=== PATIENT | male | born 1940 | race Caucasian/White ===

== ENCOUNTER 2016-11-05 10:41 | Day surgery (SDC) | payer OTHER ==
[2016-11-05] VITALS (7 sets, daily range): BP systolic 113–176; BP diastolic 59–90; PULSE 75–86; RESP 16–20; TEMP 97.7–97.8; O2SAT 94–96
[~2016-11-05] VITALS: Ht 180.3 cm; Wt 75.0 kg
[~2016-11-05 10:41] MED LIST: ASPI81 PO; CITA20TA4 PO; HYDR-3580 PO; LISI-357 PO; LOVA40TA PO; METO25CR PO; NEUR300C PO; TAB-TAB PO; TAMS0.4C67 PO
[2016-11-05] MEDS ORDERED: FINA5TAB2 PO (11:11)
[2016-11-05] MEDS ORDERED: MULT1TAB84 PO (11:11)
[2016-11-05] MEDS ORDERED: DEXA2TAB PO (11:11)
[2016-11-05] MEDS ORDERED: LOVA40TA PO (11:11)
[2016-11-05] MEDS ORDERED: METO25TA6 PO (11:16)
[2016-11-05] MEDS ORDERED: LISI-519 PO (11:16)
[2016-11-05] MEDS ORDERED: ZOLP5TAB3 PO (11:17)
[2016-11-05] MEDS ORDERED: SERT-132 PO (11:18)
[2016-11-05] MEDS ORDERED: TAMS0.4C4 PO (11:19)
[2016-11-05] MEDS ORDERED: XARE20TA PO (11:19)
[2016-11-05] MEDS ORDERED: ACET-703 PO (11:20)
[2016-11-05] MEDS ORDERED: SODIUM CHLOR 0.9% 1000 ML IV SCH (11:30)
[2016-11-05] MEDS ORDERED: LIDOCAINE 1%/EPINEPHrine 1:100,000 SOLN 20 ML VIAL ONE (12:15)
[2016-11-05] MEDS ORDERED: MIDAZOLAM HCL 5 MG/5 ML VIAL ONE (12:28)
[2016-11-05] MEDS ORDERED: fentaNYL CITRATE 250 MCG/5 ML AMP ONE (12:28)
--- NOTE | 2016-11-05 14:15 | RADRPT ---
EXAM DATE/TIME: 11/05/2016 12:48 [facility] COMPARISON: No previous studies available for comparison. Correlation was performed to an outside PET CT exam. INDICATIONS : Soft tissue pelvic mass SEDATION TIME: 40 minutes BIOPSY SITE: Right pelvis MEDICATION(S): 1.) 5 mg midazolam (Versed) IV 2.) 250 mcg fentanyl (Sublimaze) IV DEVICE(S): 1.) 18 gauge Temno core biopsy needle 2.) 17 gauge introducer MEDICAL HISTORY : Carcinoma, squamous cell. Cardiovascular disease. SURGICAL HISTORY : CABG ENCOUNTER: Initial ACUITY: 1 day PAIN SCORE: 8/10 LOCATION: Right hip A total of six core specimen(s) were obtained and sent to the laboratory for pathologic evaluation. PROCEDURE: 1. CT guided soft tissue, right biopsy. 2. Conscious sedation with continuous EKG and oximetry monitoring. 3. EKG and oximetry remained stable throughout the procedure. Prior to the procedure informed consent was obtained. The patient's prior PET CT examination was revi ewed. Using automated exposure control and adjustment of the mA and/or kV according to patient size, radiat ion dose was kept as low as reasonably achievable to obtain optimal diagnostic quality images. The site was prepped in a sterile fashion. Full sterile technique was used, including cap, mask, hill rile gloves and gown and a large sterile sheet. Hand hygiene and 2% chlorhexidine and/or betadine/al cohol prep was utilized per protocol for cutaneous antisepsis. The skin and subcutaneous tissues wer e infiltrated with local anesthetic solution. With CT guidance the right pelvis mass was localized. The mass is located in the right iliac fossa re gion adjacent to the iliac is seen psoas muscles. PET imaging demonstrated the central portion to be necrotic so the periphery and particularly the inferior aspect was localized. Biopsy was performed us ing the prescribed needle as above. Adequate hemostasis was obtained with compression at the punctur e site. Follow-up CT scan reveals no hemorrhage or concerning abnormality. The patient tolerated the procedure well and there were no complications. The patient was returned to the Radiology Outpatient Unit in stable condition. CONCLUSION: Uncomplicated CT guided biopsy of the right pelvis mass. Emerson Cannon MD on November 05, 2016 at 14:12 Board Certified Radiologist. This report was verified electronically.
== END 2016-11-05 16:00 | disposition home or self-care (01) ==
LOC: MERGE 10:41 → HRAD 10:41 → HRIP 10:42 → HRAD 16:00
PROVIDERS: ATTEND Radiology Radiation Oncology
DX: C49.8 Malignant neoplasm of overlapping sites of connective and soft tissue (principal); R19.00 Intra-abdominal and pelvic swelling, mass and lump, unspecified site; Z85.828 Personal history of other malignant neoplasm of skin; I25.10 Atherosclerotic heart disease of native coronary artery without angina pectoris; Z95.1 Presence of aortocoronary bypass graft
CPT/HCPCS: 20206; 77012; 88305; 88313; 88341; 88342; 99152; 99153; J2250; J3010

== ENCOUNTER 2016-11-25 05:51 | Day surgery (SDC) | payer OTHER ==
[~2016-11-25] VITALS: Ht 180.3 cm; Wt 73.2 kg
[~2016-11-25 05:51] MED LIST changes: +ACET-703 PO; +DEXA2TAB PO; +FINA5TAB2 PO; +LISI-519 PO; +METO25TA6 PO; +MULT1TAB84 PO; +SERT-132 PO; +TAMS0.4C4 PO; +XARE20TA PO; +ZOLP5TAB3 PO
[2016-11-25] MEDS ORDERED: OXYB5TAB10 PO (06:38)
[2016-11-25] MEDS ORDERED: LISI-519 PO (06:39)
[2016-11-25] MEDS ORDERED: METO25TA6 PO (06:40)
[2016-11-25] MEDS ORDERED: XARE20TA PO (06:41)
[2016-11-25 06:42] VITALS: BP 128/74; PULSE 68; RESP 20; TEMP 98.2; O2SAT 97
[2016-11-25] MEDS ORDERED: MULT-65 PO (06:42)
[2016-11-25] MEDS ORDERED: LOVA40TA PO (06:43)
[2016-11-25] MEDS ORDERED: HYDR-3580 PO (06:44)
[2016-11-25] MEDS ORDERED: TAMS5CAP PO (06:45)
[2016-11-25] MEDS ORDERED: ceFAZolin 2 GM PREMIX 50 ML - implanted port removal IV SCH (07:00)
[2016-11-25] MEDS ORDERED: ceFAZolin 2 GM PREMIX 50 ML - implanted port/tunneled catheter insertion IV SCH (07:00)
[2016-11-25] MEDS: POVIDONE IODINE 5% (ANTISEPSIS KIT) 4 APPLICATIONS EACH NARE SCH ×2 (07:00→09:21)
[2016-11-25] MEDS: CHLORHEXIDINE GLUCONATE 2 % 1 PACK (2 CLOTHS) TOPICAL SCH ×2 (07:00→09:21)
[2016-11-25] MEDS ORDERED: VANCOMYCIN 1000 MG/NS 250 ML - implanted port/tunneled catheter IV SCH ×2 (07:00)
[2016-11-25] MEDS ORDERED: SODIUM CHLORIDE 0.9% 1000 ML IV SCH (07:00)
[2016-11-25 07:25] LABS: AUTOMATED NEUTROPHIL # 7.5 TH/MM3 (1.8-7.7); BASOPHIL % 0.4 % (0.0-2.0); EOSINOPHIL # 0.3 TH/MM3 (0-0.4); EOSINOPHIL % 3.1 % (0.0-4.0); HEMATOCRIT 38.7 % (39.0-51.0); HEMO FLAGS DIFF FINAL; LYMPH % 14.9 % (9.0-44.0); LYMPHOCYTE # 1.6 TH/MM3 (1.0-4.8); MEAN CELL VOLUME 89.2 FL (80.0-100.0); MEAN CORPUSCULAR HEMOGLOBIN 30.3 PG (27.0-34.0); MEAN CORPUSCULAR HGB CONC 33.9 % (32.0-36.0); MONO % 10.4 % (0.0-8.0); NEUT % 71.2 % (16.0-70.0); PLATELET COUNT 350 TH/MM3 (150-450); RED BLOOD COUNT 4.34 MIL/MM3 (4.50-5.90); WHITE BLOOD COUNT 10.6 TH/MM3 (4.0-11.0)
[2016-11-25 07:34] LABS: APTT (PATIENT) 29.4 SEC (24.3-30.1); INTERNATIONAL NORMALIZED RATIO 1.1 RATIO; PROTHROMBIN TIME - PATIENT 11.9 SEC (9.8-11.6)
[2016-11-25] MEDS ORDERED: fentaNYL CITRATE 250 MCG/5 ML AMP ONE (07:43)
[2016-11-25] MEDS ORDERED: MIDAZOLAM HCL 5 MG/5 ML VIAL ONE (07:43)
[2016-11-25] MEDS ORDERED: LIDOCAINE 1%/EPINEPHrine 1:100,000 SOLN 20 ML VIAL ONE (08:16)
[2016-11-25] MEDS ORDERED: SODIUM CHLORIDE 0.9% FLUSH 10 ML FLUSH IVF PRN (09:00)
[2016-11-25 09:10] VITALS: BP 129/57; PULSE 90; RESP 18; TEMP 98.1; O2SAT 92
--- NOTE | 2016-11-25 09:13 | PD.RAD ---
Post Procedure Progress Note Pre Procedure Diagnosis: (1) Lung cancer Post Procedure Diagnosis: (1) Lung cancer Procedure Date: November 25, 2016 Supervising Radiologist: Pantera Mueller Proceduralist/Assist: Latia Pierce, RT(R)(CV), Yasmeen Huffman RT(R) Anesthesia: Analgesia, Conscious Sedation Plan of Activity Patient to Unit: ROPU Patient Condition: Good See PACS Report for procedural detail/treatment Central Venous Access Device Procedure 1 Right Internal Jugular Infusaport Placement single lumen Yoruba: 8 Pantera Mueller MD November 25, 2016 09:13
[2016-11-25 09:45] VITALS: BP 118/76; PULSE 96; RESP 20; O2SAT 92
[2016-11-25 10:15] VITALS: BP 115/65; PULSE 82; RESP 18; O2SAT 92
[2016-11-25 10:40] VITALS: BP 100/65; PULSE 96; RESP 18; O2SAT 92
[2016-11-25 11:26] VITALS: BP 105/54; PULSE 99; RESP 18; O2SAT 94
--- NOTE | 2016-11-25 13:37 | RADRPT ---
EXAM DATE/TIME: 11/25/2016 07:59 [facility] COMPARISON: No previous studies available for comparison. INDICATIONS : Lung cancer. Patient for Radiation and chemo therapy. MEDICAL HISTORY : 1. CAD 2. MA 3. HTN 4. former smoker 5. Multble lesions in Lt hilum,liver SURGICAL HISTORY : 1. Coronary stent 2. Colonoscopy 2013 3. Back surgery 4. CABG ENCOUNTER: Initial ACUITY: 2 weeks PAIN SCORE: 10/10 LOCATION: back and right hip FLUORO TIME: 0.3 minutes IMAGE SERIES: 1 SEDATION TIME: 45 minutes ACCESS: Right internal jugular vein SEDATION: 1.) 5 mg midazolam (Versed) IV 2.) 250 mcg fentanyl (Sublimaze) IV Prophylactic antibiotics were administered with appropriate pre-procedure timing. Vancomycin within 2 hours of procedure, Ancef (or alternative) within 1 hour of procedure. DEVICE: 1. 8 Cymro single lumen Bard Power Port PROCEDURE : 1. Continuous pulse oximetry and EKG monitoring. 2. Intravenous conscious sedation. 3. Ultrasound guidance for venous access. 4. Fluoroscopic guided implantable central venous port placement. The patient was placed supine. The neck was prepped in sterile fashion. Full sterile technique was u sed, including cap, mask, sterile gloves and gown, and a large sterile sheet. Hand hygiene and 2% ch lorhexidine Betadine was utilized per protocol for cutaneous antisepsis with appropriate dry time for site. The skin and subcutaneous tissues were infiltrated with local anesthetic solution. Under direct ultrasound guidance, central venous access was accomplished in the targeted vessel. The ultrasound images depicting access guidance were stored and saved to PACS for permanent record. A s ubcutaneous pocket was created using blunt dissection. The port was introduced to the pocket. The c atheter tubing was fed through a subcutaneous tunnel to the venotomy site. The catheter tubing was c ut to a suitable length and then was introduced through a valved Peel-Away sheath and positioned with catheter tubing tip at the cavo-atrial junction level. The pocket incision was closed with subcutic ular Vicryl suture. Steri-Strips were applied. The port was flushed and locked with heparin solutio n per protocol. Sterile dressing was applied to the site. The patient tolerated the procedure well. Conscious sedation was performed with the prescribed dosages and duration as above in the presence of an independent trained radiology nurse to assist in the monitoring of the patient. EKG and oximetry remained stable throughout the procedure. The patient tolerated the procedure well and there were no complications. The patient was sent to post anesthesia recovery in stable condition. CONCLUSION: Uncomplicated ultrasound and fluoroscopic guided implanted central venous port catheter placement as described in detail above. An 8 Cymro Power port was placed. Pantera Mueller MD on November 25, 2016 at 13:35 Board Certified Radiologist. This report was verified electronically.
== END 2016-11-25 11:32 | disposition home or self-care (01) ==
LOC: HROP 05:51 → HRIP 05:51 → HROP 11:32
PROVIDERS: ATTEND Internal Medicine Hematology & Oncology
DX: C34.90 Malignant neoplasm of unspecified part of unspecified bronchus or lung (principal); I25.10 Atherosclerotic heart disease of native coronary artery without angina pectoris; I25.2 Old myocardial infarction; I10 Essential (primary) hypertension; Z87.891 Personal history of nicotine dependence; Z95.5 Presence of coronary angioplasty implant and graft; Z95.1 Presence of aortocoronary bypass graft; K21.9 Gastro-esophageal reflux disease without esophagitis
CPT/HCPCS: 36561; 76937; 77001; 85025; 85610; 85730; 99152; 99153; C1788; J0690; J1642; J2250; J3010; J3370; J7050

== ENCOUNTER 2016-12-14 15:35 | Inpatient (IN) | payer OTHER, MEDICARE ==
[2016-12-14] VITALS (7 sets, daily range): BP systolic 102–120; BP diastolic 57–75; PULSE 114–137; RESP 18–24; TEMP 97.4–98.3; O2SAT 94–98
[~2016-12-14] VITALS: Ht 180.3 cm; Wt 54.0 kg
[~2016-12-14 15:35] MED LIST changes: -ASPI81 PO; -CITA20TA4 PO; -LISI-357 PO; -METO25CR PO; +MULT-65 PO; -NEUR300C PO; +OXYB5TAB10 PO; -TAB-TAB PO; +TAMS5CAP PO
--- NOTE | 2016-12-14 16:56 | PD ---
HPI Chief Complaint: Pain: Acute or Chronic Time Seen by Provider: 16:41 Travel History International Travel<30 days: No Contact w/Intl Traveler<30days: No Traveled to known affect area: No History of Present Illness HPI 76-year-old male complains of severe pain all over the body. Patient has history of metastatic lung disease and squamous cell carcinoma of the skin. Patient is to taking morphine at home for pain. Patient states that the pain is more severe recently and the morphine is not relieving the pain. Patient was advised by his physician both the ED for admission for pain control. Patient denies any headache. Patient denies any shortness of breath. Patient denies fever chills. Patient denies abdominal pain. Patient denies any nausea vomiting diarrhea. Patient denies any focal weakness or numbness of extremity. Patient states that most of pain more severe around the left shoulder, right groin, right arm, right shoulder, the neck area. PFSH Past Medical History Hx Anticoagulant Therapy: Yes (XARELTO) Arthritis: Yes Asthma: No Autoimmune Disease: No Blood Disorders: No Anxiety: No Depression: Yes Heart Rhythm Problems: No Cancer: Yes Cardiac Catheterization: Yes Cardiovascular Problems: Yes (4X CABG) High Cholesterol: Yes Chemotherapy: Yes (RADITATION ONLY, SUPPOSE TO GO TO CHEMO 12/14/16) Chest Pain: Yes Congestive Heart Failure: No COPD: No Diabetes: No Diminished Hearing: No Endocrine: No Gastrointestinal Disorders: Yes (GERD) Genitourinary: Yes (BPH) Hepatitis: No Hiatal Hernia: No Hypertension: Yes Immune Disorder: No Musculoskeletal: Yes (back problems) Neurologic: No Psychiatric: No Reproductive: No Respiratory: Yes (LUNG CA WITH METS) Myocardial Infarction: Yes Radiation Therapy: No Renal Failure: Yes Sleep Apnea: No Thyroid Disease: No Past Surgical History Abdominal Surgery: No AICD: No Body Medical Devices: CARDIAC STENTS Cardiac Surgery: Yes (CABG X4) Coronary Artery Bypass Graft: Yes Coronary Stent: Yes Genitourinary Surgery: Yes (prostate staple) Joint Replacement: No Pacemaker: No Other Surgery: Yes (CABG, SQUAMOUS CELL CA ) Social History Alcohol Use: Yes (SOCIALLY ) Tobacco Use: No (QUIT 10 YEARS AGO) Substance Use: No Allergies-Medications (Allergen,Severity, Reaction): Coded Allergies: No Known Allergies (Verified , 12/14/16) Reported Meds & Prescriptions Reported Meds & Active Scripts Active Reported Flomax (Tamsulosin HCl) 0.4 Mg Cap 0.4 Mg PO HS Hydrocodone-Acetaminophen 7.5-325 mg Tab 1 Tab PO Q6H PRN Lovastatin 40 Mg Tab 40 Mg PO DAILY Multi-Vitamin Daily (Multiple Vitamin) 1 Tab Tab 1 Tab PO DAILY Xarelto (Rivaroxaban) 20 Mg Tab 20 Mg PO DAILY Metoprolol Succinate ER 24 HR (Metoprolol Succinate) 25 Mg Tab 25 Mg PO DAILY Lisinopril 5 Mg Tab 5 Mg PO DAILY Ditropan (Oxybutynin Chloride) 5 Mg Tab 5 Mg PO Q8HR Flomax (Tamsulosin HCl) 0.4 Mg Cap 0.4 Mg PO DAILY Review of Systems General / Constitutional: No: Fever Eyes: No: Visual changes HENT: No: Headaches Cardiovascular: No: Chest Pain or Discomfort Respiratory: No: Shortness of Breath Gastrointestinal: No: Abdominal Pain Genitourinary: No: Dysuria Musculoskeletal: Positive: Pain Skin: No Rash Neurologic: No: Weakness Psychiatric: No: Depression Endocrine: No: Polydipsia Hematologic/Lymphatic: No: Easy Bruising Physical Exam Narrative GENERAL: Well-nourished, well-developed patient. SKIN: Focused skin assessment warm/dry. HEAD: Normocephalic. EYES: No scleral icterus. No injection or drainage. NECK: Supple, trachea midline. No JVD or lymphadenopathy. CARDIOVASCULAR: Regular rate and rhythm without murmurs, gallops, or rubs. RESPIRATORY: Breath sounds equal bilaterally. No accessory muscle use. GASTROINTESTINAL: Abdomen soft, non-tender, nondistended. MUSCULOSKELETAL: No cyanosis, or edema. BACK: Nontender without obvious deformity. No CVA tenderness. Neurologic exam normal. Data Data Last Documented VS Vital Signs Date Time Temp Pulse Resp B/P Pulse Ox O2 Delivery O2 Flow Rate FiO2 12/14/16 15:37 97.4 137 24 120/57 96 Room Air [facility] Medical Decision Making Medical Screen Exam Complete: Yes Emergency Medical Condition: Yes Differential Diagnosis Differential diagnosis including intractable pain, electrolyte abnormality, dehydration, pathologic fracture. Narrative Course 76-year-old male with metastatic lung cancer and intractable pain. Normal saline solution 100 cc an hour. Dilaudid 1 mg IV. Zofran 4 mg IV. Sumit Cartwright MD Dec 14, 2016 16:56
[2016-12-14] MEDS ORDERED: SODIUM CHLOR 0.9% 1000 ML INJ 1,000 ML IV SCH (17:00)
[2016-12-14] MEDS ORDERED: ESCI10TA PO (17:14)
[2016-12-14] MEDS ORDERED: MSIR15 PO (17:14)
[2016-12-14] MEDS ORDERED: MORP1TAB25 PO (17:14)
[2016-12-14] MEDS ORDERED: GABA100C4 PO (17:14)
[2016-12-14] MEDS ORDERED: DILTIAZEM HCL 25 MG/5 ML VIAL IV ONE ×2 (17:30→19:15)
--- NOTE | 2016-12-14 17:45 | RADRPT ---
EXAM DATE/TIME: 12/14/2016 17:19 [facility] COMPARISON: CHEST SINGLE AP, December 21, 2013, 14:22. INDICATIONS : Short of breath. General bilateral pain. MEDICAL HISTORY : Carcinoma, lung. SURGICAL HISTORY : Open heart. ENCOUNTER: Initial ACUITY: 1 day PAIN SCORE: 6/10 LOCATION: Bilateral chest FINDINGS: [id number]-Ipie is in good position. Sternal wires from previous median sternotomy are noted. Minimal parenchymal changes are seen in the left base. Right lung is clear. CONCLUSION: Interval development of parenchymal changes on the left. These are nonspecific. Shailesh Fox MD FACR on December 14, 2016 at 17:42 Board Certified Radiologist. This report was verified electronically.
[2016-12-14 17:55] LABS: AUTOMATED NEUTROPHIL # 12.5 TH/MM3 (1.8-7.7); BASOPHIL % 0.3 % (0.0-2.0); EOSINOPHIL # 0.2 TH/MM3 (0-0.4); EOSINOPHIL % 1.4 % (0.0-4.0); HEMATOCRIT 36.2 % (39.0-51.0); HEMO FLAGS DIFF FINAL; MEAN CELL VOLUME 89.1 FL (80.0-100.0); MEAN CORPUSCULAR HEMOGLOBIN 28.6 PG (27.0-34.0); MEAN CORPUSCULAR HGB CONC 32.1 % (32.0-36.0); NEUT % 83.3 % (16.0-70.0); PLATELET COUNT 309 TH/MM3 (150-450); RED BLOOD COUNT 4.06 MIL/MM3 (4.50-5.90); RED CELL DISTRIBUTION WIDTH 13.2 % (11.6-17.2)
[2016-12-14 18:02] LABS: INTERNATIONAL NORMALIZED RATIO 1.4 RATIO; PROTHROMBIN TIME - PATIENT 15.3 SEC (9.8-11.6)
--- NOTE | 2016-12-14 18:20 | EKG ---
Date Performed: 12/14/2016 Time Performed: 17:11:06 PTAGE: 76 years EKG: ATRIAL FIBRILLATION WITH RAPID VENTRICULAR RESPONSE NONSPECIFIC ST & T-WAVE ABNORMALITY ABN ORMAL RHYTHM ECG COMPARED TO PRIOR ELECTROCARDIOGRAM, rapid atrial fibrillation has replaced Sinus r hythm and ST-T wave changes are present. PREVIOUS TRACING : 12/21/2013 14.02 DOCTOR: Abimael Zhao Interpretating Date/Time 12/14/2016 18:19:46
[2016-12-14 18:37] LABS: BLOOD, URINE NEG (NEG); COMMENT (UR) CULT NOT INDICATED; CULTURE IF INDICATED CULT NOT INDICATED; GLUCOSE,URINE NEG (NEG); KETONE, URINE 10 mg/dL (NEG); MUCUS URINE FEW /lpf (OCC); NITRITE,URINE NEG (NEG); PH, URINE 5.5 (5.0-8.5); URINE COLOR YELLOW (YELLW/STRAW)
[2016-12-14 18:43] LABS: ALT (GPT) 29 U/L (12-78)
[2016-12-14 18:46] LABS: ALKALINE PHOSPHATASE 221 U/L (45-117); ANION GAP 14 MEQ/L (5-15); AST (GOT) 25 U/L (15-37); BICARBONATE 21.9 MEQ/L (21.0-32.0); BLOOD UREA NITROGEN 16 MG/DL (7-18); CHLORIDE 98 MEQ/L (98-107); GLOMERULAR FILTRATION RATE 104 ML/MIN (>89); POTASSIUM 4.2 MEQ/L (3.5-5.1); SODIUM (NA) 134 MEQ/L (136-145); TOTAL BILIRUBIN ADULT 0.5 MG/DL (0.2-1.0)
[2016-12-14 18:56] LABS: CREATINE KINASE 42 U/L (39-308)
--- NOTE | 2016-12-14 19:07 | PD ---
Data Data Last Documented VS Vital Signs Date Time Temp Pulse Resp B/P Pulse Ox O2 Delivery O2 Flow Rate FiO2 12/14/16 18:56 114 18 112/73 94 Room Air 12/14/16 15:37 97.4 Orders Electrocardiogram (12/14/16 16:51) Complete Blood Count With Diff (12/14/16 16:51) Comprehensive Metabolic Panel (12/14/16 16:51) Creatine Kinase (Cpk) (12/14/16 16:51) Prothrombin Time / Inr (Pt) (12/14/16 16:51) Act Partial Throm Time (Ptt) (12/14/16 16:51) Urinalysis - C+S If Indicated (12/14/16 16:51) Chest, Single Ap (12/14/16 16:51) Iv Access Insert/Monitor (12/14/16 16:51) Ecg Monitoring (12/14/16 16:51) Oximetry (12/14/16 16:51) Sodium Chlor 0.9% 1000 Ml Inj (Ns 1000 M (12/14/16 17:00) Diltiazem Inj (Cardizem Inj) (12/14/16 17:30) Troponin I (12/14/16 17:30) Hydromorphone Pf Inj (Dilaudid Pf Inj) (12/14/16 19:15) Diltiazem Inj (Cardizem Inj) (12/14/16 19:15) Diltiazem Cd (Cardizem Cd) (12/14/16 19:15) Labs Laboratory Tests Test 12/14/16 12/14/16 17:00 18:10 White Blood Count 15.0 TH/MM3 Red Blood Count 4.06 MIL/MM3 Hemoglobin 11.6 GM/DL Hematocrit 36.2 % Mean Corpuscular Volume 89.1 FL Mean Corpuscular Hemoglobin 28.6 PG Mean Corpuscular Hemoglobin 32.1 % Concent Red Cell Distribution Width 13.2 % Platelet Count 309 TH/MM3 Mean Platelet Volume 8.2 FL Neutrophils (%) (Auto) 83.3 % Lymphocytes (%) (Auto) 7.0 % Monocytes (%) (Auto) 8.0 % Eosinophils (%) (Auto) 1.4 % Basophils (%) (Auto) 0.3 % Neutrophils # (Auto) 12.5 TH/MM3 Lymphocytes # (Auto) 1.0 TH/MM3 Monocytes # (Auto) 1.2 TH/MM3 Eosinophils # (Auto) 0.2 TH/MM3 Basophils # (Auto) 0.0 TH/MM3 CBC Comment DIFF FINAL Differential Comment Prothrombin Time 15.3 SEC Prothromb Time International 1.4 RATIO Ratio Activated Partial 32.0 SEC Thromboplast Time Sodium Level 134 MEQ/L Potassium Level 4.2 MEQ/L Chloride Level 98 MEQ/L Carbon Dioxide Level 21.9 MEQ/L Anion Gap 14 MEQ/L Blood Urea Nitrogen 16 MG/DL Creatinine 0.73 MG/DL Estimat Glomerular Filtration 104 ML/MIN Rate Random Glucose 115 MG/DL Calcium Level 10.4 MG/DL Total Bilirubin 0.5 MG/DL Aspartate Amino Transf 25 U/L (AST/SGOT) Alanine Aminotransferase 29 U/L (ALT/SGPT) Alkaline Phosphatase 221 U/L Total Creatine Kinase 42 U/L Troponin I LESS THAN 0.02 NG/ML Total Protein 7.2 GM/DL Albumin 2.1 GM/DL Urine Color YELLOW Urine Turbidity CLEAR Urine pH 5.5 Urine Specific [place] 1.022 Urine Protein 30 mg/dL Urine Glucose (UA) NEG mg/dL Urine Ketones 10 mg/dL Urine Occult Blood NEG Urine Nitrite NEG Urine Bilirubin NEG Urine Urobilinogen LESS THAN 2.0 MG/DL Urine Leukocyte Esterase NEG Urine RBC LESS THAN 1 /hpf Urine WBC 2 /hpf Urine Mucus FEW /lpf Microscopic Urinalysis Comment CULT NOT INDICATED MDM Supervised Visit with NARINDER: No Narrative Course The patient was initially evaluated by the previous provider and sent out to me at the beginning of my shift pending labs and disposition. See his note for further details. Briefly this is a 76-year-old male with history of metastatic lung cancer, squamous cell carcinoma of the scalp who was sent in by his primary care physician for admission for pain control. The patient is on morphine at home, however this is not controlling his pain. No fevers. Previous provider spoke with the patient's oncologist Dr. Motley who agrees with basic labs and admission for pain control, and he will evaluate the patient in consultation. Patient was also noted to be in A. fib with RVR upon arrival to the emergency department. He denies any known history of atrial fibrillation. He does have history of coronary artery disease and CABG and has been on Xarelto since his CABG. No history of DVT or PE. No chest pain or dyspnea. Initial vital signs show heart rate 137, blood pressure 120/57, pulse ox 96% on room air, oral temp 97.4F. Patient was given 10 mg of IV Cardizem with improvement in heart rate initially , however on reassessment his heart rate is back in the 120s. He will be given another dose of 10 mg of IV Cardizem. CBC shows WBC 15, hemoglobin 11.6, hematocrit 36.2, platelets 309, neutrophils 83%. CMP is remarkable for calcium 10.4 with alkaline phosphatase 221 and albumin 2.1 , otherwise unremarkable. Cardiac enzymes are negative. Chest x-ray: Interval development of peripheral changes on the left. These are nonspecific. Patient and the patient's family were made aware of all findings. He is resting comfortably. He is complaining of diffuse pain with pain mainly in his right thigh. He'll be admitted for further treatment and evaluation of metastatic disease with uncontrolled pain as well as new onset A. fib with RVR. Case discussed with hospitalist Dr. Ash who will admit the patient to her service. Diagnosis Primary Impression: Atrial fibrillation with RVR Additional Impression: Uncontrolled pain Admitting Information Admitting Physician Requests: Admit Guillermo Dudley MD Dec 14, 2016 19:07
[2016-12-14] MEDS ORDERED: HYDROmorphone HCL PF 1 MG/ML VIAL IV PUSH ONE (19:15)
[2016-12-14] MEDS ORDERED: DILTIAZEM-CD 120 MG CAP ER PO ONE (19:15)
[2016-12-14] MEDS ORDERED: SODIUM CHLORIDE 0.9% FLUSH 10 ML FLUSH IV FLUSH PRN (19:45)
[2016-12-14] MEDS ORDERED: ONDANSETRON HCL 4 MG/2 ML VIAL IVP PRN (19:45)
[2016-12-14] MEDS ORDERED: NALOXONE HCL 0.4 MG/ML AMP IV PRN (19:45)
[2016-12-14] MEDS: SODIUM CHLORIDE 0.9% FLUSH 10 ML FLUSH IV FLUSH SCH (21:00)
[2016-12-14] MEDS: HYDROmorphone HCL PF 1 MG/ML VIAL IV PUSH PRN ×2 (21:11→23:25)
[2016-12-14] MEDS: MORPHINE SULFATE 30 MG CONTROLLED RELEASE TAB PO SCH (21:46)
--- NOTE | 2016-12-14 21:51 | HHI.HP ---
HPI Service [facility] Primary Care Physician Lc Frazier MD Admission Diagnosis A. fib with RVR, uncontrolled pain Diagnoses: (1) Atrial fibrillation with RVR (2) Lung cancer Chief Complaint: Severe back pain Travel History International Travel<30 Days: No Contact w/Intl Traveler <30 Da: No Traveled to Known Affected Are: No History of Present Illness Written by Jolene Esparza, acting as scribe for Dr. Ash on 12/14/16 at 21:50. Mr. Garg is a 76 year-old male with a history of coronary artery disease status post CABG 4 and cardiac stent placement on Xarelto, lung cancer with metastasis receiving radiation treatments (oncologist is Dr. Motley), gastroesophageal reflux disease, BPH, arthritis, chronic back pain, and depression who presented to the emergency room on 12/14/2016 complaining of severe intractable pain. He was also noted to be in new-onset atrial fibrillation with rapid ventricular response. Patient reports severe back pain and severe right hip/pelvis pain worse - pain medication (morphine/Gabapentin) at home did not help - worsened with even light touch Family reports that he was falling frequently at home ? - Dr. Ramirez (referral and information aide for Dr. Brambila) sent him to the ER for evaluation. Patient reports that he fell down 2 or 3 days ago - fell on buttocks - legs were weak No paresthesias Difficulty urinating - one or two months (maybe more?) Last radiation treatment was Wednesday (no chemo yet - tomorrow is supposed to be 1st day of chemotherapy with Dr. Motley) pain in right: shoulder, bicep, hip; cancer left lung Denies history of diabetes mellitus, CHF, breathing problems, PE, DVT, CVA, seizures, or thyroid problems Reports maximum temperature at home of 99.5, no vomiting, diarrhea, black or bloody stool, or hematuria. . Review of Systems Except as stated in HPI: all other systems reviewed are Neg Past Family Social History Past Medical History Hypertension Squamous cell skin CA Coronary artery disease status post CABG x 4 (2013) with stent placement Lung cancer with metastasis receiving radiation Gastroesophageal reflux disease BPH Arthritis Chronic back pain Depression . Past Surgical History Squamous cell CA on head removed x 2 Laminectomy Penile implant CABG x 4 (2014) Cardiac catheterization with stent placement TURP Right IJ Carcpt-i-[id number] placement 11/25/2016 . Reported Medications Reported Meds & Active Scripts Active Reported Gabapentin 100 Mg Cap 100 Mg PO TID Morphine IR (Morphine Sulfate) 15 Mg Tab 15 Mg PO Q2HR PRN Morphine ER (Morphine Sulfate) 30 Mg Tab 30 Mg PO BID Escitalopram (Escitalopram Oxalate) 10 Mg Tab 10 Mg PO DAILY Lovastatin 40 Mg Tab 40 Mg PO DAILY Multi-Vitamin Daily (Multiple Vitamin) 1 Tab Tab 1 Tab PO DAILY Xarelto (Rivaroxaban) 20 Mg Tab 20 Mg PO DAILY Metoprolol Succinate ER 24 HR (Metoprolol Succinate) 25 Mg Tab 25 Mg PO DAILY Lisinopril 5 Mg Tab 5 Mg PO DAILY Ditropan (Oxybutynin Chloride) 5 Mg Tab 5 Mg PO Q8HR . Allergies: Coded Allergies: No Known Allergies (Verified , 12/14/16) Active Ordered Medications Current Medications Sodium Chloride (NS 1000 ml Inj) 1,000 ml @ 100 mls/hr Q10H IV Last administered on 12/14/16 17:37; Start 12/14/16 at 17:00; Stop 12/14/16 at 21:25 ; Status DC Diltiazem HCl (Cardizem Inj) 10 mg ONCE ONCE IV Last administered on 17:37; Start 12/14/16 at 17:30; Stop 12/14/16 at 17:31; Status DC Hydromorphone HCl (Dilaudid Pf Inj) 1 mg ONCE ONCE IV PUSH Last administered on 12/14/16 19:08; Start 12/14/16 at 19:15; Stop 12/14/16 at 19:16; Status DC Diltiazem HCl (Cardizem Inj) 10 mg ONCE ONCE IV Last administered on 19:10; Start 12/14/16 at 19:15; Stop 12/14/16 at 19:16; Status DC Diltiazem HCl (Cardizem Cd) 120 mg ONCE ONCE PO Last administered on 20:16; Start 12/14/16 at 19:15; Stop 12/14/16 at 19:16; Status DC Sodium Chloride (NS Flush) 2 ml UNSCH PRN IV FLUSH FLUSH AFTER USING IV ACCESS ; Start 12/14/16 at 19:45 Sodium Chloride (NS Flush) 2 ml BID IV FLUSH ; Start 12/14/16 at 21:00 Ondansetron HCl (Zofran Inj) 4 mg Q6H PRN IVP NAUSEA OR VOMITING; Start at 19:45 Naloxone HCl (Narcan Inj) 0.4 mg UNSCH PRN IV SEE LABEL COMMENTS; Start at 19:45 Escitalopram Oxalate (Lexapro) 10 mg DAILY PO ; Start 12/15/16 at 09:00 Gabapentin (Neurontin) 100 mg TID PO ; Start 12/15/16 at 09:00 Lisinopril (Prinivil) 5 mg DAILY PO ; Start 12/15/16 at 09:00 Pravastatin Sodium (Pravachol) 40 mg DAILY PO ; Start 12/15/16 at 09:00 Metoprolol Succinate (Toprol Xl) 25 mg DAILY PO ; Start 12/15/16 at 09:00 Morphine Sulfate (Oramorph Sr) 30 mg BID PO ; Start 12/14/16 at 21:00 Oxybutynin Chloride (Ditropan) 5 mg Q8HR PO ; Start 12/14/16 at 22:00 Rivaroxaban (Xarelto) 20 mg DAILY PO ; Start 12/15/16 at 09:00 Multivitamins (Theragran) 1 tab DAILY PO NS; Start 12/15/16 at 09:00 Hydromorphone HCl (Dilaudid Pf Inj) 1 mg Q2HR PRN IV PUSH pain >5 Last administered on 12/14/16t 21:11; Start 12/14/16 at 21:00 . Family History Mother with heart disease . Social History Tobacco: 1.5 PPD; quit 5 years ago Alcohol: social occasional use . Physical Exam Vital Signs Vital Signs Date Time Temp Pulse Resp B/P Pulse Ox O2 Delivery O2 Flow Rate FiO2 12/14/16 21:13 132 18 110/61 96 Nasal Cannula 2 12/14/16 18:56 114 18 112/73 94 Room Air 12/14/16 18:36 130 20 102/64 98 Room Air 12/14/16 18:05 117 20 119/64 98 Room Air 12/14/16 15:37 97.4 137 24 120/57 96 Room Air Physical Exam GENERAL: This is an elderly male patient; Tearful and painful throughout visit SKIN: No rashes, ecchymoses or lesions. Cool and dry. HEAD: Atraumatic. Normocephalic. EYES: No scleral icterus. No injection or drainage. ENT: Nose without bleeding, purulent drainage. NECK: Trachea midline. No JVD. CARDIOVASCULAR: Regular rate and rhythm without murmurs, gallops, or rubs. RESPIRATORY: Clear to auscultation. Breath sounds equal bilaterally. No wheezes , rales, or rhonchi. GASTROINTESTINAL: Abdomen soft, non-tender, nondistended. No guarding. MUSCULOSKELETAL: Extremities without clubbing, cyanosis. No calf tenderness. Right ankle joint swollen - patient states chronic and not painful, NEUROLOGICAL: Awake and alert. Motor and sensory grossly within normal limits. Normal speech. . Laboratory Laboratory Tests Test 12/14/16 12/14/16 17:00 18:10 White Blood Count 15.0 Red Blood Count 4.06 Hemoglobin 11.6 Hematocrit 36.2 Mean Corpuscular Volume 89.1 Mean Corpuscular Hemoglobin 28.6 Mean Corpuscular Hemoglobin 32.1 Concent Red Cell Distribution Width 13.2 Platelet Count 309 Mean Platelet Volume 8.2 Neutrophils (%) (Auto) 83.3 Lymphocytes (%) (Auto) 7.0 Monocytes (%) (Auto) 8.0 Eosinophils (%) (Auto) 1.4 Basophils (%) (Auto) 0.3 Neutrophils # (Auto) 12.5 Lymphocytes # (Auto) 1.0 Monocytes # (Auto) 1.2 Eosinophils # (Auto) 0.2 Basophils # (Auto) 0.0 CBC Comment DIFF FINAL Differential Comment Prothrombin Time 15.3 Prothromb Time International 1.4 Ratio Activated Partial 32.0 Thromboplast Time Sodium Level 134 Potassium Level 4.2 Chloride Level 98 Carbon Dioxide Level 21.9 Anion Gap 14 Blood Urea Nitrogen 16 Creatinine 0.73 Estimat Glomerular Filtration 104 Rate Random Glucose 115 Calcium Level 10.4 Total Bilirubin 0.5 Aspartate Amino Transf 25 (AST/SGOT) Alanine Aminotransferase 29 (ALT/SGPT) Alkaline Phosphatase 221 Total Creatine Kinase 42 Troponin I LESS THAN 0.02 Total Protein 7.2 Albumin 2.1 Urine Color YELLOW Urine Turbidity CLEAR Urine pH 5.5 Urine Specific [place] 1.022 Urine Protein 30 Urine Glucose (UA) NEG Urine Ketones 10 Urine Occult Blood NEG Urine Nitrite NEG Urine Bilirubin NEG Urine Urobilinogen LESS THAN 2.0 Urine Leukocyte Esterase NEG Urine RBC LESS THAN 1 Urine WBC 2 Urine Mucus FEW Microscopic Urinalysis Comment CULT NOT INDICATED Result Diagram: 12/14/16 1700 12/14/16 1700 Assessment and Plan Problem List: (1) Intractable pain ICD Code: R52 Status: Acute (2) Lung cancer ICD Code: C34.90 Status: Acute (3) Atrial fibrillation with RVR ICD Code: I48.91 Status: Acute Assessment and Plan Mr. Garg is a 76 year-old male with metastatic lung cancer who presented to the emergency room on 12/14/2016 complaining of severe intractable pain. He was also noted to be in new-onset atrial fibrillation with rapid ventricular response. Intractable Pain - secondary to metastatic lung cancer - Continue home Oramorph 30 mg BID - Add Dilaudid 1 mg IV q2h PRN - Consult Dr. Motley (oncologist) - assistance appreciated - suspect some underlying anxiety - will start Xanax 0.125 mg p.o. q6h New Onset Atrial Fibrillation with RVR - consult cardiology - assistance appreciated - cardizem drip for rate control - Continuous cardiac telemetry - Vital signs every 4 hours - Continue home Xarelto - IVF hydration with Normal Saline at 100 cc per hour DVT prophylaxis - Continue home Xarelto . Discussed Condition With ER physician, JOURNEYMAN MOLDER, patient, multiple family members at bedside . Physician Certification 2 Midnight Certification Type: Admission for Inpatient Services Order for Inpatient Services The services are ordered in accordance with Medicare regulations or non- Medicare payer requirements, as applicable. In the case of services not specified as inpatient-only, they are appropriately provided as inpatient services in accordance with the 2-midnight benchmark. Estimated LOS (days): 3 days is the estimated time the patient will need to remain in the hospital, assuming treatment plan goals are met and no additional complications. Post-Hospital Plan: Not yet determined Jolene Esparza Dec 14, 2016 21:51
[2016-12-14] MEDS ORDERED: DILTIAZEM INJ 125 MG in SODIUM CHLORIDE 0.9% INJ 100 ML IV SCH (22:00)
[2016-12-14] MEDS: OXYBUTYNIN CHLORIDE 5 MG TAB PO SCH (23:25)
[2016-12-15] VITALS (24 sets, daily range): BP systolic 114–150; BP diastolic 59–69; PULSE 74–106; RESP 16–22; TEMP 97.6–98.7; O2SAT 92–97
[2016-12-15] MEDS: ALPRAZolam 0.25 MG TAB PO PRN (01:11)
[2016-12-15] MEDS: HYDROmorphone HCL PF 1 MG/ML VIAL IV PUSH PRN ×6 (01:34→23:59)
[2016-12-15] MEDS ORDERED: LORazepam 2 MG/ML VIAL IV PUSH ONE (03:45)
[2016-12-15 06:07] LABS: AUTOMATED NEUTROPHIL # 12.2 TH/MM3 (1.8-7.7); BASOPHIL # 0.1 TH/MM3 (0-0.2); BASOPHIL % 0.4 % (0.0-2.0); EOSINOPHIL # 0.3 TH/MM3 (0-0.4); EOSINOPHIL % 1.7 % (0.0-4.0); HEMATOCRIT 30.9 % (39.0-51.0); HEMO FLAGS DIFF FINAL; LYMPH % 9.1 % (9.0-44.0); LYMPHOCYTE # 1.4 TH/MM3 (1.0-4.8); MEAN CELL VOLUME 87.3 FL (80.0-100.0); MEAN CORPUSCULAR HEMOGLOBIN 29.3 PG (27.0-34.0); MEAN CORPUSCULAR HGB CONC 33.5 % (32.0-36.0); MONO % 10.3 % (0.0-8.0); NEUT % 78.5 % (16.0-70.0); PLATELET COUNT 286 TH/MM3 (150-450); RED BLOOD COUNT 3.54 MIL/MM3 (4.50-5.90); RED CELL DISTRIBUTION WIDTH 13.4 % (11.6-17.2); WHITE BLOOD COUNT 15.5 TH/MM3 (4.0-11.0)
[2016-12-15 06:29] LABS: ANION GAP 13 MEQ/L (5-15); AST (GOT) 14 U/L (15-37); BICARBONATE 20.4 MEQ/L (21.0-32.0); BLOOD UREA NITROGEN 14 MG/DL (7-18); CHLORIDE 102 MEQ/L (98-107); GLOMERULAR FILTRATION RATE 144 ML/MIN (>89); POTASSIUM 3.8 MEQ/L (3.5-5.1); SODIUM (NA) 135 MEQ/L (136-145)
[2016-12-15 06:30] LABS: ALT (GPT) 21 U/L (12-78)
[2016-12-15 06:32] LABS: ALKALINE PHOSPHATASE 177 U/L (45-117); TOTAL BILIRUBIN ADULT 0.5 MG/DL (0.2-1.0)
[2016-12-15] MEDS: OXYBUTYNIN CHLORIDE 5 MG TAB PO SCH ×3 (06:47→22:58)
--- NOTE | 2016-12-15 08:46 | MB ---
cc: BARBARA QUINN MD DATE OF CONSULTATION 12/15/2016 REASON FOR CONSULTATION Atrial fibrillation with rapid ventricular rate. HISTORY OF PRESENT ILLNESS Mr. Garg is a 76-year-old man who does have a history of CABG x 4 any cardiac stents. He unfortunately also has a history of metastatic lung cancer. He presented to the emergency room with severe pains in the back, hip and pelvis. He during the workup was found to be in A-fib with RVR. This morning the patient complains of chest pain. PAST MEDICAL HISTORY Significant for - 1. Hypertension. 2. CAD with previous CABG and stents. 3. Lung cancer with mets receiving radiation therapy. 4. GERD. 5. BPH. 6. Arthritis . 7. Chronic back pain. 8. Depression. 9. Squamous cell skin cancer. 10. Bad back. PAST SURGICAL HISTORY 1. CABG. 2. Laminectomy. 3. Penile implant. 4. TURP. REVIEW OF SYSTEMS Except as mentioned in the HPI, all 12 systems are negative. FAMILY HISTORY Noncontributory. SOCIAL HISTORY The patient is . He is a former smoker. ALLERGIES No known drug allergies. CURRENT MEDICATIONS Per the record. PHYSICAL EXAMINATION VITAL SIGNS: 97.8, 78, 22, 128/65. IN GENERAL: He is a thin, elderly man who is in no apparent distress. NECK: His neck is free from JVD. LUNGS: Scattered rhonchi throughout. CARDIOVASCULAR EXAMINATION: He has irregular irregular rhythm. No murmurs, rubs or gallops appreciated. ABDOMEN: Soft. EXTREMITIES: Free from edema. CHEST WALL: tender to palpation. LABORATORY FINDINGS Significant for a white count of 15.5 and a hemoglobin of 10.4. His troponin was less than 0.02. TELEMETRY - Atrial flutter with a controlled ventricular rate. IMPRESSIONS Atrial fibrillation with rapid ventricular rate - The patient is controlled on IV Cardizem. He did have some bursts on this. Nevertheless I feel this would be a better choice than the Toprol given his lung cancer. The patient should be on anticoagulation for a CHADS-VASc score of over 2. This does need to be tempered by the fact that he does have metastatic lung cancer and could potentially bleed into that as well as that he is already anemic. He his CHADS-VASc score would be 3 for over 75 and hypertension, plus his yearly event date is about 3-6% off medications. Hypertension - As above, we are going to stop his metoprolol. Dyslipidemia - I would continue the statin. David Eden/SSB /7:45 AM /8:40 AM
[2016-12-15] MEDS ORDERED: LISINOPRIL 5 MG TAB PO SCH (09:00)
[2016-12-15] MEDS ORDERED: METOPROLOL SUCCINATE 25 MG EXTENDED RELEASE TAB PO SCH (09:00)
[2016-12-15] MEDS ORDERED: ESCITALOPRAM OXALATE 10 MG TAB PO SCH (09:00)
[2016-12-15] MEDS: DILTIAZEM-CD 300 MG CAP ER PO SCH (09:10)
[2016-12-15] MEDS: RIVAROXABAN 20 MG TAB PO SCH (09:11)
[2016-12-15] MEDS: PRAVASTATIN SOD 40 MG TAB PO SCH (09:11)
[2016-12-15] MEDS: GABAPENTIN 100 MG CAP PO SCH ×3 (09:11→17:57)
[2016-12-15] MEDS: MULTIVITAMIN TAB PO SCH (09:11)
[2016-12-15] MEDS: SODIUM CHLORIDE 0.9% FLUSH 10 ML FLUSH IV FLUSH SCH ×2 (09:12→21:00)
[2016-12-15] MEDS: MORPHINE SULFATE 30 MG CONTROLLED RELEASE TAB PO SCH ×2 (09:12→22:59)
--- NOTE | 2016-12-15 09:34 | HHI.PR ---
Subjective Remarks Patient reports still having persistent pain. mostly involving the right hip. SOB is closer to baseline. HR better controlled. He was weaned off the Cardizem drip Objective Vitals Vital Signs Date Time Temp Pulse Resp B/P Pulse Ox O2 Delivery O2 Flow Rate FiO2 12/15/16 09:00 82 12/15/16 08:00 85 12/15/16 07:00 78 12/15/16 07:00 97.8 78 22 128/65 95 12/15/16 06:12 74 12/15/16 05:12 84 12/15/16 04:48 80 12/15/16 03:20 89 12/15/16 03:20 98.1 86 18 117/65 92 12/15/16 02:24 102 12/15/16 01:43 95 12/15/16 00:47 106 12/14/16 23:15 98.3 123 20 105/75 96 12/14/16 23:15 116 12/14/16 23:00 116 12/14/16 21:53 18 12/14/16 21:13 132 18 110/61 96 Nasal Cannula 2 12/14/16 18:56 114 18 112/73 94 Room Air 12/14/16 18:36 130 20 102/64 98 Room Air 12/14/16 18:05 117 20 119/64 98 Room Air 12/14/16 15:37 97.4 137 24 120/57 96 Room Air I/O 12/14/16 12/14/16 12/14/16 12/15/16 12/15/16 12/15/16 07:00 15:00 23:00 07:00 15:00 23:00 Intake Total 1828 ml Balance 1828 ml Intake Oral 960 ml IV Total 868 ml # Voids 2 # Bowel Movements 1 Result Diagram: 12/15/16 0506 12/15/16 0506 Objective Remarks GENERAL: This is a well-nourished, well-developed patient, in no apparent distress. CARDIOVASCULAR: Normal rate and regular rhythm without murmurs, gallops, or rubs. RESPIRATORY: Good respiratory efforts. Breath sounds equal and clear to auscultation bilaterally. GASTROINTESTINAL: Abdomen soft, non-tender, non-distended. Normal active bowel sounds MUSCULOSKELETAL: Patient complained of pain over the right hip. Mild pain with range of motion. NEURO: Alert & Oriented x4 to person, place, time, situation. Moves all ext x4 PSYCH: Appropriate mood and affect. A/P Problem List: (1) Intractable pain ICD Code: R52 Status: Acute (2) Lung cancer ICD Code: C34.90 Status: Acute (3) Atrial fibrillation with RVR ICD Code: I48.91 Status: Acute Assessment and Plan 76 year-old male with metastatic lung cancer who presented to the emergency room on 12/14/2016 complaining of severe intractable pain. Patient also found to be in A. fib with RVR. Intractable Pain - secondary to metastatic lung cancer. Pain is worse over the right hip. Patient has been very weak and falling at home per family reports. We will obtain x-ray of the right hip to rule out fractures. - Continue home Oramorph 30 mg BID -Continue Dilaudid 1 mg IV q2h PRN Metastatic lung cancer: Consult the patient's oncologist, Dr. duarte. Patient reportedly was supposed to start chemotherapy on 12/14/16. Atrial Fibrillation with RVR - consult cardiology - assistance appreciated -Cardizem drip has been weaned off. On oral Cardizem. - Continuous cardiac telemetry - Continue home Xarelto - IVF hydration with Normal Saline at 100 cc per hour 1 more liter. DVT prophylaxis - Continue home Yumikorelto Sophia Moran MD Dec 15, 2016 09:34
[2016-12-15] MEDS ORDERED: SODIUM CHLOR 0.9% 1000 ML INJ 1,000 ML IV SCH (11:00)
--- NOTE | 2016-12-15 15:31 | RADRPT ---
EXAM DATE/TIME: 12/15/2016 13:23 [facility] COMPARISON: No previous studies available for comparison. INDICATIONS : Right hip pain, fell in his room this morning. MEDICAL HISTORY : Myocardial infarction. CAD, Multiple lung and liver lesions SURGICAL HISTORY : Coronary artery stent. CABG. Colonoscopy 2014, back surgery ENCOUNTER: Initial ACUITY: 1 day PAIN SCORE: Non-responsive. LOCATION: Right hip and pelvis FINDINGS: There is no acute fracture or dislocation of the right hip. Degenerative changes and scoliosis of th e lower lumbar spine are noted. Mild degenerative changes are noted involving the hip joints bilater ally. CONCLUSION: 1. No acute fracture or dislocation. 2. Mild degenerative changes involving the hip joints bilaterally. 3. Degenerative changes and scoliosis of the lower lumbar spine. Junior Langley MD on December 15, 2016 at 15:26 Board Certified Radiologist. This report was verified electronically.
--- NOTE | 2016-12-15 18:08 | MB ---
cc: CLINT ELDER MD DATE OF CONSULTATION December 15, [address] Moran. REASON FOR CONSULTATION Oncology is consulted to render opinion regarding patient with metastatic lung cancer admitted with intractable pain. HISTORY OF PRESENT ILLNESS The patient is a 76-year-old male recently diagnosed with metastatic [id number] lung carcinoma. He had a biopsy of the pelvic mass which showed invasive poorly differentiated malignant neoplasm. The staining pattern was suggestive of transitional cell carcinoma or pancreatic carcinoma, but the radiologic study and cystoscopy did not show any lesion in the bladder or pancreas. He has widespread metastatic disease in the liver, bone and soft tissue. He is receiving palliative radiation to the right shoulder and right hip. He has about three more radiation to complete the course. However, over the last two weeks he has experienced increased pain in the right shoulder and right pelvis and hip. He also is beginning to have some tenderness in the left shoulder blade area. He stated that his leg is very weak and he has fallen several times. He was taking morphine extended release and using immediate release morphine for breakthrough pain but was not able to control his pain. He is not eating well and has lost more weight. He has become weaker. His family brought him to the emergency room. The patient denies any significant headache. He has chronic blurry vision. Denies any chest pressure, but he does have some pain in the upper chest occasionally. He has no significant shortness of breath or cough. Denies any nausea, vomiting, abdominal pain. He has constipation due to opiates. Denies any change in urinary habits. PAST MEDICAL HISTORY 1. Metastatic non-small cell lung carcinoma 2. Scalp squamous cell carcinoma 3. Osteoarthritis. 4. Coronary artery disease. 5. History of myocardial infarction. 6. Hyperlipidemia 7. Hypertension. 8. Benign prostatic hypertrophy. 9. Gastroesophageal reflux disease. PAST SURGICAL HISTORY 1. Coronary stent placement 2. Back surgery twice. 3. Sigmoidoscopy. 4. Excision of scalp lesion. 5. Coronary bypass graft surgery. FAMILY HISTORY He has four sons, three living. SOCIAL HISTORY Smoked a pack a pack and half a day for about 50 years and quit about three years ago. He also quit alcohol. ALLERGIES No known drug allergies. MEDICATIONS Current, 1. Gabapentin 2. Pravastatin 3. Xarelto 4. Multivitamin 5. Diltiazem 5. Ditropan. 6. Oramorph 7. Dilaudid p.r.n. REVIEW OF SYSTEMS CONSTITUTIONAL: He has lost more weight. He has increased weakness. EYES: Denies any blurred vision, double vision. ENT: Denies mouth sore or voice changes. CARDIOVASCULAR: He denies any chest pressure or palpitation at this time. RESPIRATORY: Denies any shortness of breath or cough. GI: Denies nausea, vomiting, abdominal pain. He has constipation. : No dysuria or hematuria. MUSCULOSKELETAL: As above. HEMATOLOGIC: Negative. ENDOCRINE: Negative DERMATOLOGIC: Negative. PSYCHIATRIC: Negative. NEUROLOGIC: Negative. PHYSICAL EXAMINATION VITAL SIGNS: Temperature 97.8, blood pressure 119/67, O2 saturation 97%. GENERAL: He is alert and oriented x3 in no acute distress. HEENT: Atraumatic, normocephalic. Pupils equal, round and reactive to light. Extraocular muscles intact. No scleral icterus. Oropharynx dry mucosa. No lesion. NECK: No thyromegaly. No palpable masses. LYMPHATICS: No palpable cervical, clavicular, axillary or inguinal lymph nodes. CARDIOVASCULAR: Irregularly irregular S1-S2. LUNGS: Clear to auscultation anteriorly. ABDOMEN: Soft, nontender. I could not palpate liver or spleen. EXTREMITIES: No cyanosis, clubbing or edema. BACK: A little tender in her right shoulder and left shoulder blade area. SKIN: He has a scalp nodule on bilateral temporal area. The one on the right side was quite large. There was also a nodule in the upper left chest wall near the breast. NEUROLOGIC: Exam nonfocal. LABORATORY DATA Reviewed ASSESSMENT 1. Metastatic non-small cell lung carcinoma. PET scan showed widespread metastatic lesion in the liver, soft tissue, muscle and bone. Biopsy of pelvic mass showed invasive poorly differentiated malignant neoplasm. The staining pattern was suggestive of transitional cell carcinoma or pancreatic adenocarcinoma, but lung cancer cannot be excluded. PET scan did not show any suspicious pancreatic lesion. He had a cystoscopy which did not show any bladder lesion. The clinical picture is more consistent with metastatic lung cancer. He had a lot of pain in the right shoulder and hip when I first saw him. He was referred for palliative radiation. He has three more days to complete the course. Unfortunately, his pain has not improved with the radiation, in fact, over the last week or two his pain has become more intense and not controlled by the morphine. This is worrisome for progression of disease. He also has a new subcutaneous nodule on his left chest wall, right thigh and on his scalp. If he indeed has developed progression of disease at the radiation site, the prognosis is very poor. The tumor is likely not going to respond to chemotherapy as well. At this point, I am going to have him get a CT scan for further evaluation. I had a discussion with his son. He understands the poor prognosis. 2. Intractable pain due to metastatic cancer. He is on Oramorph 30 mg twice a day. He is receiving Dilaudid p.r.n. and his pain is better controlled. We will continue to titrate his pain medication. 3. Benign prostatic hypertrophy, stable. 4. Atrial fibrillation with rapid ventricular rate. His rate is now controlled. He is on Xarelto. 5. Leukocytosis likely reactive process. 6. Hypertension 7. Hyperlipidemia. 8. Coronary disease. PLAN 1. Extensive discussion with the patient and family. 2. Get CT of chest, abdomen and pelvis 3. Continue to titrate pain medication. 4. Continue anticoagulation. Thank you, Dr. Moran, for asking me to see this patient. MD ANNEMARIE Sanabria/ /5:29 PM /5:53 PM JEANNETTE
[2016-12-15] MEDS ORDERED: IOHEXOL 350 MG/ML 10 ML VIAL (for RAD DIAG) IV ONE (18:29)
--- NOTE | 2016-12-15 18:50 | RADRPT ---
EXAM DATE/TIME: 12/15/2016 18:25 [facility] COMPARISON: CT ABDOMEN & PELVIS W CONTRAST, December 15, 2016, 18:22. INDICATIONS : Evaluate for metastases. IV CONTRAST: 100 cc Omnipaque 350 (iohexol) IV ; Cumulative dose for multiple exams. RADIATION DOSE: 5.17 CTDIvol (mGy) ; Combined studies - Thorax/Abdomen/Pelvis MEDICAL HISTORY : Cardiovascular disease. Carcinoma, prostate. Squamous cell cancer. SURGICAL HISTORY : CABG ENCOUNTER: Initial ACUITY: 1 day PAIN SCALE: 2/10 LOCATION: Bilateral chest TECHNIQUE: Volumetric scanning of the chest was performed. Using automated exposure control and adjustment of t he mA and/or kV according to patient size, radiation dose was kept as low as reasonably achievable to obtain optimal diagnostic quality images. FINDINGS: Large irregular mass measuring approximately 5.5 cm seen of the left hilum and extending into the AP window region. There is patchy postobstructive pneumonia in the left upper lobe. Scattered pulmonary nodules are present measuring up to 14 mm in size compatible with metastatic dise ase. There is a nodule in the left upper lobe that abuts the mediastinal pleura. No pleural effusion or pneumothorax. There are mediastinal lymph nodes including 2.0 x 4.0 cm subcarinal. Scattered lytic lesions are seen of the thoracic spine including a 17 mm T4 and 19 mm T9. Other lesio ns are subcentimeter. No pathologic fracture demonstrated. CONCLUSION: 1. 5.5 cm right hilar mass compatible with primary bronchogenic carcinoma until proven otherwise. 2. There is mediastinal lymphadenopathy and pulmonary metastatic disease. 3. Lytic lesions of the visualized osseous structures would be compatible with lung carcinoma metasta ses rather than prostate carcinoma. Emerson Ortiz MD on December 15, 2016 at 18:42 Board Certified Radiologist. This report was verified electronically.
--- NOTE | 2016-12-15 19:16 | RADRPT ---
EXAM DATE/TIME: 12/15/2016 18:22 [place] COMPARISON: CT THORAX W CONTRAST, December 15, 2016, 18:25. INDICATIONS : Evaulate for metastases. IV CONTRAST: 100 cc Omnipaque 350 (iohexol) IV ; Cumulative dose for multiple exams. ORAL CONTRAST: Prescribed oral contrast ingested. RADIATION DOSE: 5.17 CTDIvol (mGy) ; Combined studies - Thorax/Abdomen/Pelvis MEDICAL HISTORY : Carcinoma, lung. Cardiovascular disease Squamous cell cancer. SURGICAL HISTORY : CABG ENCOUNTER: Initial ACUITY: 1 day PAIN SCALE: 4/10 LOCATION: Bilateral lower quadrant TECHNIQUE: Volumetric scanning of the abdomen and pelvis was performed. Using automated exposure control and ad justment of the mA and/or kV according to patient size, radiation dose was kept as low as reasonably achievable to obtain optimal diagnostic quality images. FINDINGS: Ill-defined hypodensities are seen in the liver compatible with metastatic disease. Largest lesion is in the dome of the right hepatic lobe and measures 7.6 cm in size. The other lesions are 15 mm or le ss in size and right hepatic lobe predominant. Spleen, pancreas, adrenal glands and kidneys are within normal limits. There is a irregular soft tissue mass infiltrating the right iliopsoas muscle. The mass has indistinc t margins but is estimated at approximately 6.4 x 6.6 x 9.6 cm in size. A similar mass is suspected i nfiltrating the proximal right adductor musculature 3.6 x 4.1 x 4.0 cm in size. 31 x 35 mm lytic lesi on with marked cortical thinning seen of the right ischial tuberosity. Previous prostate radiation seed placement. No perceptible mass. There is a penile prosthesis.. CONCLUSION: 1. Metastatic disease of the liver. 2. Indistinct mass infiltrating the right iliopsoas muscle at the level of the lumbosacral junction. The differential would include metastatic lesion and liposarcoma. I believe there is a similar mass i n the right proximal adductor musculature which would make metastatic disease much more likely. 3. Lytic metastatic lesion with cortical thinning of the right ischial tuberosity. No pathologic frac ture demonstrated. Emerson Ortiz MD on December 15, 2016 at 19:07 Board Certified Radiologist. This report was verified electronically.
[2016-12-16] VITALS (21 sets, daily range): BP systolic 103–120; BP diastolic 46–65; PULSE 72–100; RESP 18; TEMP 98.3–98.9; O2SAT 92–94
[2016-12-16] MEDS: OXYBUTYNIN CHLORIDE 5 MG TAB PO SCH ×2 (05:26→13:55)
[2016-12-16 06:50] LABS: HEMATOCRIT 30.2 % (39.0-51.0); MEAN CELL VOLUME 88.8 FL (80.0-100.0); MEAN CORPUSCULAR HEMOGLOBIN 28.7 PG (27.0-34.0); MEAN CORPUSCULAR HGB CONC 32.3 % (32.0-36.0); PLATELET COUNT 269 TH/MM3 (150-450); RED CELL DISTRIBUTION WIDTH 13.2 % (11.6-17.2); REVIEW FLAG FINAL; WHITE BLOOD COUNT 13.9 TH/MM3 (4.0-11.0)
[2016-12-16 07:26] LABS: BICARBONATE 21.9 MEQ/L (21.0-32.0); POTASSIUM 3.5 MEQ/L (3.5-5.1)
--- NOTE | 2016-12-16 07:42 | PD.CARD.PN ---
Subjective Subjective Remarks No change Objective Medications Current Medications Medications (Trade) Dose Ordered Sig/Ryan Route Start Time Stop Time Status Last Admin (NS Flush) 2 ml UNSCH PRN IV FLUSH 12/14/16 19:45 (NS Flush) 2 ml BID IV FLUSH 12/14/16 21:00 12/15/16 09:12 (Zofran Inj) 4 mg Q6H PRN IVP 12/14/16 19:45 (Narcan Inj) 0.4 mg UNSCH PRN IV 12/14/16 19:45 (Neurontin) 100 mg TID PO 12/15/16 09:00 12/15/16 17:57 (Pravachol) 40 mg DAILY PO 12/15/16 09:00 12/15/16 09:11 (Oramorph Sr) 30 mg BID PO 12/14/16 21:00 12/15/16 22:59 (Ditropan) 5 mg Q8HR PO 12/14/16 22:00 12/16/16 05:26 (Xarelto) 20 mg DAILY PO 12/15/16 09:00 12/15/16 09:11 (Theragran) 1 tab DAILY PO 12/15/16 09:00 12/15/16 09:11 (Dilaudid Pf Inj) 1 mg Q2HR PRN IV PUSH 12/14/16 21:00 12/15/16 23:59 Alprazolam 0.125 mg 0.125 mg Q6H PRN PO 12/14/16 22:00 12/15/16 01:11 (Cardizem Inj/NS Inj) 125 ml @ 0 mls/hr TITRATE IV 12/14/16 22:00 12/15/16 06:19 (Cardizem Cd) 300 mg DAILY PO 12/15/16 09:00 12/15/16 09:10 Vital Signs / I&O Vital Signs Date Time Temp Pulse Resp B/P Pulse Ox O2 Delivery O2 Flow Rate FiO2 12/16/16 07:01 89 12/16/16 06:00 72 12/16/16 05:00 73 12/16/16 04:00 76 12/16/16 04:00 98.3 90 18 117/65 92 12/16/16 03:00 73 12/16/16 02:00 76 12/16/16 01:00 92 12/16/16 00:00 90 12/15/16 23:00 98.0 87 20 120/59 97 12/15/16 23:00 92 12/15/16 22:00 76 12/15/16 21:00 82 12/15/16 20:00 80 12/15/16 19:00 80 12/15/16 18:00 87 12/15/16 17:00 81 12/15/16 16:00 86 12/15/16 15:00 97.8 91 20 119/67 97 12/15/16 15:00 90 12/15/16 14:00 83 12/15/16 13:00 82 12/15/16 12:00 80 12/15/16 11:00 101 12/15/16 11:00 98.7 93 20 114/60 94 12/15/16 10:00 88 12/15/16 10:00 97.6 84 16 150/69 92 12/15/16 09:00 82 12/15/16 08:00 85 I/O 12/15/16 12/15/16 12/15/16 12/16/16 12/16/16 12/16/16 07:00 15:00 23:00 07:00 15:00 23:00 Intake Total 1828 ml 2155 ml 240 ml Output Total 350 ml Balance 1828 ml 2155 ml -110 ml Intake Oral 960 ml 720 ml 240 ml IV Total 868 ml 1435 ml Output Urine Total 350 ml # Voids 2 5 1 # Bowel Movements 1 Physical Exam GENERAL: Well developed, well nourished. No acute distress. HEENT: Jugular venous pressure is normal. CHEST: Lungs clear to auscultation bilaterally. Unlabored respiratory effort. CARDIAC: irregular rate and rhythm without S3, S4, or murmur. ABDOMEN: Soft, nontender, no hepatosplenomegaly. Bowel sounds present. EXTREMITIES: No clubbing, cyanosis, or edema. Laboratory Laboratory Tests Test 12/16/16 05:35 White Blood Count 13.9 TH/MM3 Red Blood Count 3.40 MIL/MM3 Hemoglobin 9.7 GM/DL Hematocrit 30.2 % Mean Corpuscular Volume 88.8 FL Mean Corpuscular Hemoglobin 28.7 PG Mean Corpuscular Hemoglobin 32.3 % Concent Red Cell Distribution Width 13.2 % Platelet Count 269 TH/MM3 Mean Platelet Volume 8.0 FL Sodium Level 136 MEQ/L Potassium Level 3.5 MEQ/L Chloride Level 102 MEQ/L Carbon Dioxide Level 21.9 MEQ/L Anion Gap 12 MEQ/L Blood Urea Nitrogen 15 MG/DL Creatinine 0.64 MG/DL Estimat Glomerular Filtration 121 ML/MIN Rate Random Glucose 93 MG/DL Calcium Level 9.0 MG/DL Assessment and Plan Assessment and Plan Atrial fibrillation fair rate control; continue same add cardizem PRN The patient should be on anticoagulation for a CHADS-VASc score of over 2. CHADS-VASc score would be 3 for over 75 and hypertension, plus his yearly event date is about 3-6% off medications; on xarelto Hypertension - Dyslipidemia - I would continue the statin. Blanca Villasenor MD Dec 16, 2016 07:42
[2016-12-16] MEDS ORDERED: DILTIAZEM HCL 30 MG TAB PO PRN (07:45)
[2016-12-16] MEDS: DILTIAZEM-CD 300 MG CAP ER PO SCH (08:25)
[2016-12-16] MEDS: PRAVASTATIN SOD 40 MG TAB PO SCH (08:25)
[2016-12-16] MEDS: MULTIVITAMIN TAB PO SCH (08:25)
[2016-12-16] MEDS: MORPHINE SULFATE 30 MG CONTROLLED RELEASE TAB PO SCH (08:25)
[2016-12-16] MEDS: RIVAROXABAN 20 MG TAB PO SCH (08:26)
[2016-12-16] MEDS: SODIUM CHLORIDE 0.9% FLUSH 10 ML FLUSH IV FLUSH SCH (08:26)
[2016-12-16] MEDS: GABAPENTIN 100 MG CAP PO SCH ×3 (08:26→18:06)
[2016-12-16] MEDS ORDERED: DOCUSATE SODIUM 50 MG/SENNA 8.6 MG TAB PO SCH (09:00)
[2016-12-16] MEDS: HYDROmorphone HCL PF 1 MG/ML VIAL IV PUSH PRN ×2 (09:21→18:06)
--- NOTE | 2016-12-16 09:22 | HHI.PR ---
Subjective Remarks Patient seen with his son Junior at bedside. He has been getting increasingly confused. His pain intensity has been fluctuating. Specialist notes reviewed. Discussed options with the family at length including hospice. Palliative care has been consulted. Objective Vitals Vital Signs Date Time Temp Pulse Resp B/P Pulse Ox O2 Delivery O2 Flow Rate FiO2 12/16/16 07:01 89 12/16/16 06:00 72 12/16/16 05:00 73 12/16/16 04:00 76 12/16/16 04:00 98.3 90 18 117/65 92 12/16/16 03:00 73 12/16/16 02:00 76 12/16/16 01:00 92 12/16/16 00:00 90 12/15/16 23:00 98.0 87 20 120/59 97 12/15/16 23:00 92 12/15/16 22:00 76 12/15/16 21:00 82 12/15/16 20:00 80 12/15/16 19:00 80 12/15/16 18:00 87 12/15/16 17:00 81 12/15/16 16:00 86 12/15/16 15:00 97.8 91 20 119/67 97 12/15/16 15:00 90 12/15/16 14:00 83 12/15/16 13:00 82 12/15/16 12:00 80 12/15/16 11:00 101 12/15/16 11:00 98.7 93 20 114/60 94 12/15/16 10:00 88 12/15/16 10:00 97.6 84 16 150/69 92 I/O 12/15/16 12/15/16 12/15/16 12/16/16 12/16/16 12/16/16 07:00 15:00 23:00 07:00 15:00 23:00 Intake Total 1828 ml 2155 ml 240 ml Output Total 350 ml Balance 1828 ml 2155 ml -110 ml Intake Oral 960 ml 720 ml 240 ml IV Total 868 ml 1435 ml Output Urine Total 350 ml # Voids 2 5 1 # Bowel Movements 1 Result Diagram: 12/16/16 0535 12/16/16 0535 Objective Remarks GENERAL: Patient looks uncomfortable with movements. CARDIOVASCULAR: Normal rate and regular rhythm without murmurs, gallops, or rubs. RESPIRATORY: Good respiratory efforts. Breath sounds equal and clear to auscultation bilaterally. GASTROINTESTINAL: Abdomen soft, non-tender, non-distended. Normal active bowel sounds MUSCULOSKELETAL: Patient complained of pain over the right hip, left shoulder blade. Mild pain with range of motion. NEURO: Awake but is mostly confused A/P Problem List: (1) Intractable pain ICD Code: R52 Status: Acute (2) Lung cancer ICD Code: C34.90 Status: Acute (3) Atrial fibrillation with RVR ICD Code: I48.91 Status: Acute Assessment and Plan 76 year-old male with metastatic lung cancer who presented to the emergency room on 12/14/2016 complaining of severe intractable pain. Patient also found to be in A. fib with RVR. Intractable Pain - secondary to metastatic lung cancer. Pain is worse over the right hip. Patient has been very weak and falling at home per family reports. Apparently the patient failed palliative radiation therapy and cancer burden is worsening with widespread new lesions. His pain is difficult to control here. - Continue home Oramorph 30 mg BID -Continue Dilaudid 1 mg IV q2h PRN Metastatic lung cancer: Appreciate oncologist, Dr. Motley. patient did not respond to palliative radiation therapy and night likely to respond to chemotherapy. His prognosis is poor. He is appropriate for hospice if family agrees for comfort care. His pain is very difficult to control in the Hospital. Hospice care center may be an option. Palliative care already consulted. His son Junior is considering Hospice. Atrial Fibrillation with RVR -Cardiology following. Cardizem drip has been weaned off. On oral Cardizem. - Continuous cardiac telemetry - Continue home Xarelto DVT prophylaxis - Continue home Yumikorelto Sophia Moran MD Dec 16, 2016 09:22
--- NOTE | 2016-12-16 12:35 | PD.ONC.PN ---
Subjective Subjective Remarks Afebrile overnight. Patient with son and stepdaughter at bedside. Having pain in the pelvis and shoulder. Family hoping to get him to hospice care center. Want to explore that further. Objective Data Date Time Temp Pulse Resp B/P Pulse Ox O2 Delivery O2 Flow Rate FiO2 12/16/16 12:01 100 12/16/16 11:15 98.3 90 18 119/58 94 12/16/16 11:00 89 12/16/16 10:00 90 12/16/16 09:00 90 12/16/16 08:15 98.9 91 18 103/46 92 12/16/16 08:00 84 12/16/16 07:01 89 12/16/16 06:00 72 12/16/16 05:00 73 12/16/16 04:00 76 12/16/16 04:00 98.3 90 18 117/65 92 12/16/16 03:00 73 12/16/16 02:00 76 12/16/16 01:00 92 12/16/16 00:00 90 12/15/16 23:00 98.0 87 20 120/59 97 12/15/16 23:00 92 12/15/16 22:00 76 12/15/16 21:00 82 12/15/16 20:00 80 12/15/16 19:00 80 12/15/16 18:00 87 12/15/16 17:00 81 12/15/16 16:00 86 12/15/16 15:00 97.8 91 20 119/67 97 12/15/16 15:00 90 12/15/16 14:00 83 12/15/16 13:00 82 12/16/16 12/16/16 12/16/16 07:00 15:00 23:00 Intake Total 240 ml Output Total 350 ml Balance -110 ml Result Diagram: 12/16/16 0535 12/16/16 0535 Laboratory Results Laboratory Tests Test 12/16/16 05:35 White Blood Count 13.9 TH/MM3 Red Blood Count 3.40 MIL/MM3 Hemoglobin 9.7 GM/DL Hematocrit 30.2 % Mean Corpuscular Volume 88.8 FL Mean Corpuscular Hemoglobin 28.7 PG Mean Corpuscular Hemoglobin 32.3 % Concent Red Cell Distribution Width 13.2 % Platelet Count 269 TH/MM3 Mean Platelet Volume 8.0 FL Sodium Level 136 MEQ/L Potassium Level 3.5 MEQ/L Chloride Level 102 MEQ/L Carbon Dioxide Level 21.9 MEQ/L Anion Gap 12 MEQ/L Blood Urea Nitrogen 15 MG/DL Creatinine 0.64 MG/DL Estimat Glomerular Filtration 121 ML/MIN Rate Random Glucose 93 MG/DL Calcium Level 9.0 MG/DL Administered Medications Medications (Trade) Dose Ordered Sig/Ryan Route PRN Reason Start Time Stop Time Status Last Admin Dose Admin Sodium Chloride (NS Flush) 2 ml BID IV FLUSH 12/14/16 21:00 12/16/16 08:26 Gabapentin (Neurontin) 100 mg TID PO 12/15/16 09:00 12/16/16 08:26 Pravastatin Sodium (Pravachol) 40 mg DAILY PO 12/15/16 09:00 12/16/16 08:25 Oxybutynin Chloride (Ditropan) 5 mg Q8HR PO 12/14/16 22:00 12/16/16 05:26 Rivaroxaban (Xarelto) 20 mg DAILY PO 12/15/16 09:00 12/16/16 08:26 Multivitamins (Theragran) 1 tab DAILY PO NS 12/15/16 09:00 12/16/16 08:25 Hydromorphone HCl (Dilaudid Pf Inj) 1 mg Q2HR PRN IV PUSH pain >5 12/14/16 21:00 12/16/16 09:21 Alprazolam 0.125 mg 0.125 mg Q6H PRN PO anxiety 12/14/16 22:00 12/15/16 01:11 Diltiazem HCl/ Sodium Chloride (Cardizem Inj/NS Inj) 125 ml @ 0 mls/hr TITRATE IV 12/14/16 22:00 12/15/16 06:19 Diltiazem HCl (Cardizem Cd) 300 mg DAILY PO 12/15/16 09:00 12/16/16 08:25 Senna/Docusate Sodium (Beata-Colace) 1 tab BID PO 12/16/16 09:00 12/16/16 09:00 Objective Remarks GENERAL: Pleasant elderly male, upright in bed. SKIN: Warm and dry. HEAD: Normocephalic. EYES: no injection or drainage. NECK: Supple, trachea midline. CARDIOVASCULAR: +S1/S2 RESPIRATORY: Breath sounds equal bilaterally. No accessory muscle use. GASTROINTESTINAL: Abdomen mildly distended, tender throughout. EXTREMITIES: No cyanosis NEUROLOGICAL: awake and alert, normal speech. moving extremities. Assessment/Plan Problem List: (1) Lung cancer Status: Acute Plan: --PET scan showed widespread metastatic lesion in the liver, soft tissue , muscle and bone. --Biopsy of pelvic mass showed invasive poorly differentiated malignant neoplasm. --staining pattern was suggestive of transitional cell carcinoma or pancreatic adenocarcinoma, but lung cancer could not be excluded. --The clinical picture is more consistent with metastatic lung cancer. --three days short of completing palliative XRT when he was admitted for pain Assessment 76y/o male with Metastatic non-small cell lung carcinoma refractory to radiation therapy h/o Benign prostatic hypertrophy, stable. Atrial fibrillation with rapid ventricular rate. -->rate controlled, on xarelto leukocytosis likely reactive process. Hypertension Hyperlipidemia. coronary disease. Plan 1. increase oramorph 30mg PO q 8 hours. 2. consult palliative care for assistance with pain management and clarification of goals. At this point the family is leaning heavily towards hospice 3. start beata-colace Attending Statement The exam, history, and the medical decision-making described in the above note were completed with the assistance of the mid-level provider. I reviewed and agree with the findings presented. I attest that I had a [id number] encounter with the patient on the same day, and personally performed and documented my assessment and findings in the medical record. Still has pain in right hip and leg when he moves. Reviewed CT result with them. I have compared his CT to his last PET, the lung lesions and lever lesions are bigger. There is a new lesion in cervical spine and pt beginning to have more pain in the left shoulder and neck. The right pelvic mass also is bigger despite XRT, The prognosis is very poor. He also has developed widespread soft tissue mets. We discussed the option of palliative chemo and hospice care. I told him the chances of responding to chemo is small. Pt stated that he dose not have good quality of life at this time, he does not wish to go through chemo if there is not a good chance that he could regain his independence and strength. I have also discussed with pt's son Junior. They want to look into the option of transferring to [facility] and are leaning towards hospice care. Consult palliative care meds for symptoms management. Denisha Dhaliwal Dec 16, 2016 12:35 Calin Motley MD Dec 16, 2016 16:01
[2016-12-16] MEDS ORDERED: MORPHINE SULFATE 30 MG CONTROLLED RELEASE TAB PO SCH (14:00)
[2016-12-16] MEDS: ALPRAZolam 0.25 MG TAB PO PRN (16:04)
--- NOTE | 2016-12-16 16:07 | PD.CONS ---
Consult Service Palliative Care . Consult Requested By Dr. Motley/ Denisha Dhaliwal PA-C . Primary Care Physician Lc Frazier MD . Reason for Consultation a. To assist with evaluation and management of symptoms including: pain, weakness, decreased appetite. b. To assist medical decision maker(s) with: better understanding of current medical conditions; weighing benefits/burdens of medical treatment options; making medical treatment decisions. . HPI History of Present Illness Mr. Garg if a 76 year old male with past medical history of metastatic non- small cell lung cancer to ever, bone and soft tissue, squamous cell carcinoma scale, osteoarthritis, coronary artery disease, hyperlipidemia, hypertension, BPH, GERD and prior OH. Patient previously underwent biopsy of pelvic mass which revealed an invasive poorly differentiated malignant neoplasm, the staining pattern was suggestive of transitional cell carcinoma pancreatic carcinoma but the radiographic study, cystoscopy did not show any lesion in the bladder pancreas. Found to have widespread metastatic disease to the liver, bone and soft tissue. He was undergoing palliative radiation therapy to the right shoulder and right hip prior to hospitalization. He was tentatively scheduled to complete his course of radiation and then going to have palliative chemotherapy. Notes indicate he had 3 additional radiation treatments before completion. Patient presented to [facility] emergency department on 12/14/16 with severe pain unrelieved with PRN hydrocodone. Patient indicated his pain in his right hip bilateral shoulders and neck area were increasing significantly. Chest x- ray revealed nonspecific interval development of parenchymal changes on the left. Hip and pelvic x-ray without acute fracture dislocation, mild degenerative changes in the hip joints bilaterally, degenerative changes in scoliosis of the lumbar spine. CT chest revealed 5.5 cm right hilar mass compatible with primary oncogenic carcinoma, mediastinal lymphadenopathy and pulmonary metastatic disease, lytic lesions visualized throughout the osseous structures. CT abdomen and pelvis revealed metastatic disease of liver, indistinct mass infiltrating right iliopsoas muscle at the level of the lumbosacral junction, lytic metastatic lesions and cortical thinning of the right ischial tuberosity no evidence of pathologic fracture. Patient was also found have new onset atrial fibrillation with RVR. Patient was admitted with atrial fibrillation with RVR and uncontrolled pain. Cardiology and oncology were consulted. Dr. Villasenor recommend continued current medication, statin and anticoagulation (Xarelto). Dr. Motley, medical oncologist indicates patient is no longer candidate for a palliative chemotherapy given decline in functional, cognitive and nutritional status. In speaking with medical oncology they agreement with overall poor prognosis and patient is certainly hospice appropriate at this time. Palliative care was consulted to assist with further clarification of treatment goals and pain management. seen and examined with multiple family members at bedside. Patient is confused, having difficulty engaging in conversation. In speaking with patient' s son, reported healthcare surrogate patient and family desire comfort focused care with hospice support. Family has spoken with [facility] and are waiting to speak with [facility] before making a decision on which service to accept. Goals are comfort oriented. . Function/Cognitive Trajectory Patient has lost significant amount of weight per families report. She indicates he is only eating bites and sips of most meals. He reports that he has no appetite. He has been having increased difficulty ambulating with several recent falls. Having increased difficulty caring for himself. Currently bedbound, dependent for care. Able to feed himself. . Review of Systems ROS Limitations: Altered Mental Status (intermittent confusion) Constitutional: COMPLAINS OF: Fatigue, Weight loss, Change in appetite ( decreased significantly), Pain (pain in bilateral hips, bilateral shoulders and back, patient indicates he has been all over.), Generalized weakness Respiratory: COMPLAINS OF: Cough, Sputum production, Shortness of breath Cardiovascular: COMPLAINS OF: Dyspnea on Exertion Gastrointestinal: COMPLAINS OF: Abdominal pain, Constipation, Anorexia, Dyspepsia or heartburn, Bloating Musculoskeletal: COMPLAINS OF: Joint pain (bilateral hips and shoulders), Stiffness, Back pain, Neck pain, Decreased range of motion Hematologic/Lymphatics: COMPLAINS OF: Bruising Neurologic: COMPLAINS OF: Poor Balance Psychiatric: COMPLAINS OF: Confusion Past Family Social History Coded Allergies: No Known Allergies (Verified , 12/14/16) Past Medical History Metastatic non-small cell lung cancer Hypertension Squamous cell skin cancer the scalp Coronary artery disease status post CABG x 4 (2013), stent placement GERD BPH Osteoarthritis Chronic back pain Depression History of myocardial infarction Hyperlipidemia . Past Surgical History Squamous cell CA on head removed x 2 Laminectomy Penile implant CABG x 4 (2013) Cardiac catheterization with stent placement TURP Right IJ [id number] placement 11/25/2016 cystoscopy biopsy of pelvic mass . Reported Medications Gabapentin 100 Mg Cap 100 Mg PO TID Morphine IR (Morphine Sulfate) 15 Mg Tab 15 Mg PO Q2HR PRN Morphine ER (Morphine Sulfate) 30 Mg Tab 30 Mg PO BID Escitalopram (Escitalopram Oxalate) 10 Mg Tab 10 Mg PO DAILY Lovastatin 40 Mg Tab 40 Mg PO DAILY Multi-Vitamin Daily (Multiple Vitamin) 1 Tab Tab 1 Tab PO DAILY Xarelto (Rivaroxaban) 20 Mg Tab 20 Mg PO DAILY Metoprolol Succinate ER 24 HR (Metoprolol Succinate) 25 Mg Tab 25 Mg PO DAILY Lisinopril 5 Mg Tab 5 Mg PO DAILY Ditropan (Oxybutynin Chloride) 5 Mg Tab 5 Mg PO Q8HR . Current Medications Medications (Trade) Dose Ordered Sig/Ryan Route Start Time Stop Time Status Last Admin (NS Flush) 2 ml UNSCH PRN IV FLUSH 12/14/16 19:45 (NS Flush) 2 ml BID IV FLUSH 12/14/16 21:00 12/16/16 08:26 (Zofran Inj) 4 mg Q6H PRN IVP 12/14/16 19:45 (Narcan Inj) 0.4 mg UNSCH PRN IV 12/14/16 19:45 (Neurontin) 100 mg TID PO 12/15/16 09:00 12/16/16 13:54 (Pravachol) 40 mg DAILY PO 12/15/16 09:00 12/16/16 08:25 (Ditropan) 5 mg Q8HR PO 12/14/16 22:00 12/16/16 13:55 (Xarelto) 20 mg DAILY PO 12/15/16 09:00 12/16/16 08:26 (Theragran) 1 tab DAILY PO 12/15/16 09:00 12/16/16 08:25 (Dilaudid Pf Inj) 1 mg Q2HR PRN IV PUSH 12/14/16 21:00 12/16/16 09:21 Alprazolam 0.125 mg 0.125 mg Q6H PRN PO 12/14/16 22:00 12/15/16 01:11 (Cardizem Inj/NS Inj) 125 ml @ 0 mls/hr TITRATE IV 12/14/16 22:00 12/15/16 06:19 (Cardizem Cd) 300 mg DAILY PO 12/15/16 09:00 12/16/16 08:25 (Cardizem) 30 mg Q6HR PRN PO 12/16/16 07:45 (Oramorph Sr) 30 mg Q8HR PO 12/16/16 14:00 12/16/16 13:55 (Beata-Colace) 1 tab BID PO 12/16/16 09:00 12/16/16 09:00 . Family History Mother with heart disease. Son of AIDS many years ago. . Substance Use Tobacco: smoked 1.5 PPD for 50 years, quit. Alcohol: prior social alcohol use, none recent. Prescription med abuse: none. Illicits: none. . Psychosocial History Has a significant other. Has 2 living sons, one son previously . Worked as a [employer]. . Spiritual/Cultural Factors Scientologist pam. . Living Will: Never completed Health Care Surrogate: Completed, but not made available Durable Power of Engineer Automated Equipment: Never completed Health Care Surrogate(s): Junior Franco indicates he has papers designating him as healthcare surrogate. Today's verbally stated goals: Patient has some difficulty engaging in conversation, does not appear to have great insight to illness. . Family/friends goals: Met with patient, significant other, son, brother, sister and [id number] at bedside. All verbalize understanding that patient's condition is terminal, elect comfort focused care with hospice support. Family is currently trying to decide between [facility] and [facility] services. . Ethical and Legal Issues Patient does not currently appear incapacitated, he is having difficulty engaging in conversation, intermittently confused, does not appear to have insight to overall health condition. Answers questions appropriately. According to [place] statutes, health care proxy decision-making falls to the majority of adult children. Junior Franco indicates he has paperwork that allows him to make decisions. Patient seems to differ most questions to his son. . Physical Exam Vital Signs Date Time Temp Pulse Resp B/P Pulse Ox O2 Delivery O2 Flow Rate FiO2 12/16/16 12:01 100 12/16/16 11:15 98.3 90 18 119/58 94 12/16/16 11:00 89 12/16/16 10:00 90 12/16/16 10:00 18 12/16/16 09:00 90 12/16/16 08:15 98.9 91 18 103/46 92 12/16/16 08:00 84 12/16/16 07:01 89 12/16/16 06:00 72 12/16/16 05:00 73 12/16/16 04:00 76 12/16/16 04:00 98.3 90 18 117/65 92 12/16/16 03:00 73 12/16/16 02:00 76 12/16/16 01:00 92 12/16/16 00:00 90 12/15/16 23:00 98.0 87 20 120/59 97 12/15/16 23:00 92 12/15/16 22:00 76 12/15/16 21:00 82 12/15/16 20:00 80 12/15/16 19:00 80 12/15/16 18:00 87 12/15/16 17:00 81 12/15/16 16:00 86 12/15/16 15:00 97.8 91 20 119/67 97 12/15/16 15:00 90 12/15/16 12/16/16 19:00 07:00 Intake Total 2155 ml 240 ml Output Total 350 ml Balance 2155 ml -110 ml Intake Oral 720 ml 240 ml IV Total 1435 ml Output Urine Total 350 ml # Voids 5 1 Exam CONSTITUTIONAL/GENERAL: This is a thin, elderly male, in no apparent distress. Lethargic. TUBES/LINES/DRAINS: PIV right, SCDs. SKIN: No jaundice, rashes, or lesions. Ecchymoses on upper extremities. No wounds seen anteriorly. Skin temperature appropriate. Not diaphoretic. HEAD: Atraumatic. Normocephalic. EYES: Pupils equal and round and reactive. Extraocular motions intact. No scleral icterus. No injection or drainage. Fundi not examined. ENT: Hearing grossly normal. Nose without bleeding or purulent drainage. No oral exudates noted. NECK: Trachea midline. Supple, nontender. CARDIOVASCULAR: Irregular rate and rhythm without murmurs, gallops, or rubs. RESPIRATORY/CHEST: Symmetric, unlabored respirations. Expiratory wheezing noted. GASTROINTESTINAL: Abdomen firm, non-tender, mildly distended. No guarding. Bowel sounds present. GENITOURINARY: Without palpable bladder distension. MUSCULOSKELETAL: Extremities without clubbing, cyanosis, or edema. Decreased ROM right LE. No mottling or clubbing. LYMPHATICS: No palpable cervical or supraclavicular adenopathy. NEUROLOGICAL: Awake, lethargic. Follows commands. Intermittently confused. PSYCHIATRIC: No obvious anxiety/depression. no apparent hallucinations or other psychotic thought process. . Diagnostic Tests Laboratory Laboratory Tests Test 12/14/16 12/14/16 12/15/16 12/16/16 17:00 18:10 05:06 05:35 White Blood Count 15.0 TH/MM3 15.5 TH/MM3 13.9 TH/MM3 (4.0-11.0) (4.0-11.0) (4.0-11.0) Red Blood Count 4.06 MIL/MM3 3.54 MIL/MM3 3.40 MIL/MM3 (4.50-5.90) (4.50-5.90) (4.50-5.90) Hemoglobin 11.6 GM/DL 10.4 GM/DL 9.7 GM/DL (13.0-17.0) (13.0-17.0) (13.0-17.0) Hematocrit 36.2 % 30.9 % 30.2 % (39.0-51.0) (39.0-51.0) (39.0-51.0) Mean Corpuscular Volume 89.1 FL 87.3 FL 88.8 FL (80.0-100.0) (80.0-100.0) (80.0-100.0) Mean Corpuscular Hemoglobin 28.6 PG 29.3 PG 28.7 PG (27.0-34.0) (27.0-34.0) (27.0-34.0) Mean Corpuscular Hemoglobin 32.1 % 33.5 % 32.3 % Concent (32.0-36.0) (32.0-36.0) (32.0-36.0) Red Cell Distribution Width 13.2 % 13.4 % 13.2 % (11.6-17.2) (11.6-17.2) (11.6-17.2) Platelet Count 309 TH/MM3 286 TH/MM3 269 TH/MM3 (150-450) (150-450) (150-450) Mean Platelet Volume 8.2 FL 7.9 FL 8.0 FL (7.0-11.0) (7.0-11.0) (7.0-11.0) Neutrophils (%) (Auto) 83.3 % 78.5 % (16.0-70.0) (16.0-70.0) Lymphocytes (%) (Auto) 7.0 % 9.1 % (9.0-44.0) (9.0-44.0) Monocytes (%) (Auto) 8.0 % (0.0-8.0) 10.3 % (0.0-8.0) Eosinophils (%) (Auto) 1.4 % (0.0-4.0) 1.7 % (0.0-4.0) Basophils (%) (Auto) 0.3 % (0.0-2.0) 0.4 % (0.0-2.0) Neutrophils # (Auto) 12.5 TH/MM3 12.2 TH/MM3 (1.8-7.7) (1.8-7.7) Lymphocytes # (Auto) 1.0 TH/MM3 1.4 TH/MM3 (1.0-4.8) (1.0-4.8) Monocytes # (Auto) 1.2 TH/MM3 1.6 TH/MM3 (0-0.9) (0-0.9) Eosinophils # (Auto) 0.2 TH/MM3 0.3 TH/MM3 (0-0.4) (0-0.4) Basophils # (Auto) 0.0 TH/MM3 0.1 TH/MM3 (0-0.2) (0-0.2) CBC Comment DIFF FINAL DIFF FINAL Differential Comment Prothrombin Time 15.3 SEC (9.8-11.6) Prothromb Time International 1.4 RATIO Ratio Activated Partial 32.0 SEC Thromboplast Time (24.3-30.1) Sodium Level 134 MEQ/L 135 MEQ/L 136 MEQ/L (136-145) (136-145) (136-145) Potassium Level 4.2 MEQ/L 3.8 MEQ/L 3.5 MEQ/L (3.5-5.1) (3.5-5.1) (3.5-5.1) Chloride Level 98 MEQ/L 102 MEQ/L 102 MEQ/L (98-107) (98-107) (98-107) Carbon Dioxide Level 21.9 MEQ/L 20.4 MEQ/L 21.9 MEQ/L (21.0-32.0) (21.0-32.0) (21.0-32.0) Anion Gap 14 MEQ/L (5-15) 13 MEQ/L (5-15) 12 MEQ/L (5-15) Blood Urea Nitrogen 16 MG/DL (7-18) 14 MG/DL (7-18) 15 MG/DL (7-18) Creatinine 0.73 MG/DL 0.55 MG/DL 0.64 MG/DL (0.60-1.30) (0.60-1.30) (0.60-1.30) Estimat Glomerular Filtration 104 ML/MIN 144 ML/MIN 121 ML/MIN Rate (>89) (>89) (>89) Random Glucose 115 MG/DL 96 MG/DL 93 MG/DL (74-106) (74-106) (74-106) Calcium Level 10.4 MG/DL 9.8 MG/DL 9.0 MG/DL (8.5-10.1) (8.5-10.1) (8.5-10.1) Total Bilirubin 0.5 MG/DL 0.5 MG/DL (0.2-1.0) (0.2-1.0) Aspartate Amino Transf 25 U/L (15-37) 14 U/L (15-37) (AST/SGOT) Alanine Aminotransferase 29 U/L (12-78) 21 U/L (12-78) (ALT/SGPT) Alkaline Phosphatase 221 U/L 177 U/L (45-117) (45-117) Total Creatine Kinase 42 U/L (39-308) Troponin I LESS THAN 0.02 NG/ML (0.02-0.05) Total Protein 7.2 GM/DL 5.9 GM/DL (6.4-8.2) (6.4-8.2) Albumin 2.1 GM/DL 1.8 GM/DL (3.4-5.0) (3.4-5.0) Urine Color YELLOW (YELLW/STRAW) Urine Turbidity CLEAR (CLEAR) Urine pH 5.5 (5.0-8.5) Urine Specific Sarita 1.022 (1.002-1.035) Urine Protein 30 mg/dL (NEG-TRACE) Urine Glucose (UA) NEG mg/dL (NEG) Urine Ketones 10 mg/dL (NEG) Urine Occult Blood NEG (NEG) Urine Nitrite NEG (NEG) Urine Bilirubin NEG (NEG) Urine Urobilinogen LESS THAN 2.0 MG/DL (LESS THAN 2.0) Urine Leukocyte Esterase NEG (NEG) Urine RBC LESS THAN 1 /hpf (0-3) Urine WBC 2 /hpf (0-5) Urine Mucus FEW /lpf (OCC) Microscopic Urinalysis Comment CULT NOT INDICATED Result Diagram: 12/16/16 0535 12/16/16 0535 Imaging Last Impressions Hip and Pelvis X-Ray 12/15/16 0000 Signed Impressions: Service Date/Time: Thursday, December 15, 2016 13:23 - CONCLUSION: 1. No acute fracture or dislocation. 2. Mild degenerative changes involving the hip joints bilaterally. 3. Degenerative changes and scoliosis of the lower lumbar spine. Junior Langley MD Chest CT 12/15/16 0000 Signed Impressions: Service Date/Time: Thursday, December 15, 2016 18:25 - CONCLUSION: 1. 5.5 cm right hilar mass compatible with primary bronchogenic carcinoma until proven otherwise. 2. There is mediastinal lymphadenopathy and pulmonary metastatic disease. 3. Lytic lesions of the visualized osseous structures would be compatible with lung carcinoma metastases rather than prostate carcinoma. Emerson Ortiz MD Abdomen/Pelvis CT 12/15/16 0000 Signed Impressions: Service Date/Time: Thursday, December 15, 2016 18:22 - CONCLUSION: 1. Metastatic disease of the liver. 2. Indistinct mass infiltrating the right iliopsoas muscle at the level of the lumbosacral junction. The differential would include metastatic lesion and liposarcoma. I believe there is a similar mass in the right proximal adductor musculature which would make metastatic disease much more likely. 3. Lytic metastatic lesion with cortical thinning of the right ischial tuberosity. No pathologic fracture demonstrated. Emerson Ortiz MD . Patient/Family Conference Present at Family Conference: Palliative care met with patient/ family: Met with patient, significant other, son, brother, sister and [id number] at bedside. All verbalize understanding that patient's condition is terminal, elect comfort focused care with hospice support. Family is currently trying to decide between [facility] and [facility] services. PPS 20. Prognosis days to weeks. . Family Conference Time (mins): 60 Family Conference Location: Bedside Issues Discussed: * Palliative care role, purpose, approach * Additional medical, psychosocial, and spiritual history * Patients general health, functional status, and cognitive changes in the months leading up to the current hospitalization * Patient/family understanding of the current medical problems * Patient/family understanding of prognosis * Patients goals of care as best understood from advance directives and/or conversations and/or values * Current medical treatment options and benefits/burdens of those options * Likely scenarios comparing ongoing aggressive care with a transition to comfort measures only * Questions answered to the best of my ability * Palliative care contact information provided Assessment and Plan Disease Oriented Problem List: (1) DDD (degenerative disc disease), lumbar (2) Intractable pain (3) Atrial fibrillation with RVR (4) Lung cancer Symptom Scale: (1) Weakness 0-10 Scale: Unable to quantify (2) Decreased appetite 0-10 Scale: Unable to quantify (3) Intractable pain 0-10 Scale: 8 Pertinent Non-Medical Issues Psychosocial: Has significant other. Supported by 2 sons and many other family members. Spiritual: Scientologist pam. Legal: Patient does not currently appear incapacitated, he is having difficulty engaging in conversation, intermittently confused, does not appear to have insight to overall health condition. Answers some questions appropriately. According to [place] statutes, health care proxy decision-making falls to the majority of adult children, patient has 2 sons. Son indicates he has paperwork that allows him to make decisions. Patient seems to defer most questions to his son. Ethical issues impacting care: No known concerns at this time. . Important Contacts * Junior Garg, son: [phone] * Ghulam Garg, son: [phone] . Prognosis Mr. Armenta is a 76 yo male with metastatic lung cancer to liver, LN, bone and soft tissue. Poor prognosis, not a candidate for palliative treatment due to poor functional, nutritional and cognitive decline. PPS 30/20, prognosis days to weeks. . Code Status: No Code Plan * Decision Maker: Patient does not currently appear incapacitated, he is having difficulty engaging in conversation, intermittently confused, does not appear to have insight to overall health condition. Answers some questions appropriately. According to [place] statutes, health care proxy decision- making falls to the majority of adult children, patient has 2 sons. Son indicates he has paperwork that allows him to make decisions. Patient seems to defer most questions to his son. * NO CODE (DNR/DNI) * Palliative care met with patient/ family: Met with patient, significant other , son, brother, sister and [id number] at bedside. All verbalize understanding that patient's condition is terminal, elect comfort focused care with hospice support. Family is currently trying to decide between [facility] and [facility] services. PPS 20. Prognosis days to weeks. * SYMPTOMS: * Pain: severe pain in right hip, left hip and bilateral shoulders and cervical/ thoracic spine regions. Currently on Oramorph 30 mg PO every 8 hours ATC, just increased 12/16/16. Dilaudid 1 mg IV Q 2 hours available PRN for breakthrough pain. Patient has used for doses of PRN Dilaudid in the past 24 hours. On Gabapentin 100 mg PO TID. May benefit from dexamethasone 4mg PO daily to decrease inflammation/ pain control. Encouraged patient to use PRN Dilaudid as needed as this will help determine overall pain need, I suspect Oramorph may need to be increased in the coming days. Patient may also benefit from methadone given neuropathic component to his pain. Will defer additional medication adjustments as patient will likely be transferred to a hospice care center setting the next 24 hours. * Weakness: generalized weakness and debility secondary to worsening cancer, pain, decreased appetite and overall decline. * Decreased appetite: secondary to worsening cancer, currently eating only bites and sepsis. * Constipation: No BM for > 1 week per son report. Notes indicate BM 12/15/16. On Senna -S BID. Will add Dulcolax suppository daily PRN constipation. * Palliative care number provided. * Palliative care will continue to follow throughout hospital course to assist with symptom management and clarification of goals as needed. . Time Spent Total Floor Time (mins): 75 Face to Face Time (mins): 60 >50% Counseling/Coord of Care: Yes Thank you for the opportunity to participate in the care of Mr. Garg. Attestation To help prompt me to consider important information that might be impacting today's encounter and assessment, information from prior notes written by myself or my colleagues may have been "brought forward" into today's note. My signature on this note, however, is an attestation that I personally performed the exam, history, and/or decision-making noted today, and, unless otherwise indicated, the interactions with patient, family, and staff as well as the review of records all occurred today. I also attest that the listed assessment and stated plan reflect my best clinical judgment today based on the combination of historical information, prior notes, and today's exam/ interactions. When time spent is documented, it refers only to time spent today by the signer, or if indicated, combined time spent today by collaborating physician/nurse practitioner. BORIS KIM Dec 16, 2016 15:30
[2016-12-16] MEDS ORDERED: BISACODYL 10 MG SUPP RECTAL PRN (17:00)
--- NOTE | 2016-12-16 17:25 | HHI.DS ---
Discharge Summary Admission Date Dec 14, 2016 at 19:19 Discharge Date: Dec 16, 2016 Admitting Diagnosis Manuela guillermo with RVR, uncontrolled pain (1) Intractable pain ICD Code: R52 (2) Lung cancer ICD Code: C34.90 (3) Atrial fibrillation with RVR ICD Code: I48.91 Procedures None Brief History - From Admission Written by Jolene Esparza, acting as scribe for Dr. Ash on 12/14/16 at 21:50. Mr. Garg is a 76 year-old male with a history of coronary artery disease status post CABG 4 and cardiac stent placement on Xarelto, lung cancer with metastasis receiving radiation treatments (oncologist is Dr. Motley), gastroesophageal reflux disease, BPH, arthritis, chronic back pain, and depression who presented to the emergency room on 12/14/2016 complaining of severe intractable pain. He was also noted to be in new-onset atrial fibrillation with rapid ventricular response. Patient reports severe back pain and severe right hip/pelvis pain worse - pain medication (morphine/Gabapentin) at home did not help - worsened with even light touch Family reports that he was falling frequently at home ? - Dr. Ramirez (small business consultant for Dr. Brambila) sent him to the ER for evaluation. Patient reports that he fell down 2 or 3 days ago - fell on buttocks - legs were weak No paresthesias Difficulty urinating - one or two months (maybe more?) Last radiation treatment was Wednesday (no chemo yet - tomorrow is supposed to be 1st day of chemotherapy with Dr. Motley) pain in right: shoulder, bicep, hip; cancer left lung Denies history of diabetes mellitus, CHF, breathing problems, PE, DVT, CVA, seizures, or thyroid problems Reports maximum temperature at home of 99.5, no vomiting, diarrhea, black or bloody stool, or hematuria. . CBC/BMP: 12/16/16 0535 12/16/16 0535 Significant Findings Laboratory Tests Test 12/14/16 12/14/16 12/15/16 12/16/16 17:00 18:10 05:06 05:35 White Blood Count 15.0 TH/MM3 15.5 TH/MM3 13.9 TH/MM3 (4.0-11.0) (4.0-11.0) (4.0-11.0) Red Blood Count 4.06 MIL/MM3 3.54 MIL/MM3 3.40 MIL/MM3 (4.50-5.90) (4.50-5.90) (4.50-5.90) Hemoglobin 11.6 GM/DL 10.4 GM/DL 9.7 GM/DL (13.0-17.0) (13.0-17.0) (13.0-17.0) Hematocrit 36.2 % 30.9 % 30.2 % (39.0-51.0) (39.0-51.0) (39.0-51.0) Neutrophils (%) (Auto) 83.3 % 78.5 % (16.0-70.0) (16.0-70.0) Lymphocytes (%) (Auto) 7.0 % (9.0-44.0) Neutrophils # (Auto) 12.5 TH/MM3 12.2 TH/MM3 (1.8-7.7) (1.8-7.7) Monocytes # (Auto) 1.2 TH/MM3 1.6 TH/MM3 (0-0.9) (0-0.9) Prothrombin Time 15.3 SEC (9.8-11.6) Activated Partial 32.0 SEC Thromboplast Time (24.3-30.1) Sodium Level 134 MEQ/L 135 MEQ/L (136-145) (136-145) Random Glucose 115 MG/DL (74-106) Calcium Level 10.4 MG/DL (8.5-10.1) Alkaline Phosphatase 221 U/L 177 U/L (45-117) (45-117) Troponin I LESS THAN 0.02 NG/ML (0.02-0.05) Albumin 2.1 GM/DL 1.8 GM/DL (3.4-5.0) (3.4-5.0) Urine Protein 30 mg/dL (NEG-TRACE) Urine Ketones 10 mg/dL (NEG) Urine Mucus FEW /lpf (OCC) Monocytes (%) (Auto) 10.3 % (0.0-8.0) Carbon Dioxide Level 20.4 MEQ/L (21.0-32.0) Creatinine 0.55 MG/DL (0.60-1.30) Aspartate Amino Transf 14 U/L (15-37) (AST/SGOT) Total Protein 5.9 GM/DL (6.4-8.2) Imaging Last Impressions Hip and Pelvis X-Ray 12/15/16 0000 Signed Impressions: Service Date/Time: Thursday, December 15, 2016 13:23 - CONCLUSION: 1. No acute fracture or dislocation. 2. Mild degenerative changes involving the hip joints bilaterally. 3. Degenerative changes and scoliosis of the lower lumbar spine. Junior Langley MD Chest CT 12/15/16 0000 Signed Impressions: Service Date/Time: Thursday, December 15, 2016 18:25 - CONCLUSION: 1. 5.5 cm right hilar mass compatible with primary bronchogenic carcinoma until proven otherwise. 2. There is mediastinal lymphadenopathy and pulmonary metastatic disease. 3. Lytic lesions of the visualized osseous structures would be compatible with lung carcinoma metastases rather than prostate carcinoma. Emerson Ortiz MD Abdomen/Pelvis CT 12/15/16 0000 Signed Impressions: Service Date/Time: Thursday, December 15, 2016 18:22 - CONCLUSION: 1. Metastatic disease of the liver. 2. Indistinct mass infiltrating the right iliopsoas muscle at the level of the lumbosacral junction. The differential would include metastatic lesion and liposarcoma. I believe there is a similar mass in the right proximal adductor musculature which would make metastatic disease much more likely. 3. Lytic metastatic lesion with cortical thinning of the right ischial tuberosity. No pathologic fracture demonstrated. Emerson Ortiz MD Chest X-Ray 12/14/16 1651 Signed Impressions: Service Date/Time: Wednesday, December 14, 2016 17:19 - CONCLUSION: Interval development of parenchymal changes on the left. These are nonspecific. Shailesh Fox MD FACR PE at Discharge GENERAL: Patient looks uncomfortable with movements. CARDIOVASCULAR: Normal rate and regular rhythm without murmurs, gallops, or rubs. RESPIRATORY: Good respiratory efforts. Breath sounds equal and clear to auscultation bilaterally. GASTROINTESTINAL: Abdomen soft, non-tender, non-distended. Normal active bowel sounds MUSCULOSKELETAL: Patient complained of pain over the right hip, left shoulder blade. Mild pain with range of motion. NEURO: Awake but is mostly confused Hospital Course 76 year-old male with metastatic lung cancer who presented to the emergency room on 12/14/2016 complaining of severe intractable pain. Patient also found to be in A. fib with RVR. Workup revealed progression of the patient's cancer despite radiation therapy. Family opted for Hospice. Intractable Pain - secondary to metastatic lung cancer. Pain is worse over the right hip. Patient has been very weak and falling at home per family reports. Apparently the patient failed palliative radiation therapy and cancer burden is worsening with widespread new lesions. His pain is difficult to control here. He was treated with - Continue home Oramorph 30 mg BID -Continue Dilaudid 1 mg IV q2h PRN Metastatic lung cancer: Appreciate oncologist, Dr. Motley. patient did not respond to palliative radiation therapy and not likely to respond to chemotherapy. His prognosis is poor. He is appropriate for hospice if family agrees for comfort care. His pain is very difficult to control in the Hospital.Patient DC to hospice care center Atrial Fibrillation with RVR -Cardiology following. Cardizem drip has been weaned off. On oral Cardizem. - Continuous cardiac telemetry - Continue home Xarelto Pt Condition on Discharge: Deteriorating Discharge Disposition: Hospice/Med Facility Discharge Time: > 30 minutes Discharge Instructions DIET: Follow Instructions for: As Tolerated, No Restrictions Activities you can perform: Regular-No Restrictions Sophia Moran MD Dec 16, 2016 17:25
== END 2016-12-16 20:11 | disposition hospice, inpatient (51) | DRG 948 ==
LOC: NEPD 15:35 → NEDA 19:19 → HCIS 22:18
PROVIDERS: ADMIT Family Medicine; ATTEND Family Medicine
DX: G89.3 Neoplasm related pain (acute) (chronic) (principal); C78.7 Secondary malignant neoplasm of liver and intrahepatic bile duct; C79.51 Secondary malignant neoplasm of bone; C79.89 Secondary malignant neoplasm of other specified sites; I48.91 Unspecified atrial fibrillation; R63.0 Anorexia; C34.90 Malignant neoplasm of unspecified part of unspecified bronchus or lung; Z68.1 Body mass index [BMI] 19.9 or less, adult; D64.9 Anemia, unspecified; I10 Essential (primary) hypertension; Z66 Do not resuscitate; Z51.5 Encounter for palliative care; F32.9 Major depressive disorder, single episode, unspecified; M19.90 Unspecified osteoarthritis, unspecified site; K21.9 Gastro-esophageal reflux disease without esophagitis; N40.0 Benign prostatic hyperplasia without lower urinary tract symptoms; E78.5 Hyperlipidemia, unspecified; I25.10 Atherosclerotic heart disease of native coronary artery without angina pectoris; R63.4 Abnormal weight loss; K59.03 Drug induced constipation; F41.9 Anxiety disorder, unspecified; T40.605A Adverse effect of unspecified narcotics, initial encounter; Z79.01 Long term (current) use of anticoagulants; Z95.5 Presence of coronary angioplasty implant and graft; Z95.1 Presence of aortocoronary bypass graft; I25.2 Old myocardial infarction; Z91.81 History of falling; Z85.828 Personal history of other malignant neoplasm of skin; Z87.891 Personal history of nicotine dependence; Z92.3 Personal history of irradiation; Z74.01 Bed confinement status
CPT/HCPCS: 71010; 71260; 73502; 74177; 80048; 80053; 81001; 82550; 84484; 85025; 85027; 85610; 85730; 93005; 96374; 96375; 96376; J1170; J2060; J7030; Q9967